=== PATIENT | male | born 1955 | race Caucasian/White ===

== ENCOUNTER → 2024-07-10 14:19 | Outpatient (REF) | payer OTHER, SELFPAY | LOC: RAD 14:19 | PROVIDERS: ATTENDING PHYSICIAN Physician Assistant Medical; FAMILY PHYSICIAN Family Medicine | DX: R31.9 Hematuria, unspecified (principal); R10.31 Right lower quadrant pain; R10.32 Left lower quadrant pain | CPT/HCPCS: 74176 ==

== ENCOUNTER → 2024-08-01 12:50 | Outpatient (REF) | payer OTHER, SELFPAY | LOC: HWRCS 12:50 | PROVIDERS: ATTENDING PHYSICIAN Physician Assistant Medical; FAMILY PHYSICIAN Family Medicine | DX: I35.9 Nonrheumatic aortic valve disorder, unspecified (principal) | CPT/HCPCS: 93306 ==

== ENCOUNTER 2024-10-08 19:52 | Inpatient (IN) | payer OTHER, SELFPAY ==
[2024-10-08] VITALS (19 sets, daily range): BP systolic 109–168; BP diastolic 70–111; BMI 29.4
--- NOTE | 2024-10-08 16:37 | ED.GENMED ---
History of Present Illness
General
Chief Complaint: Chest Pain
Source: patient and ambulance crew
Exam Limitations: none
Time Seen by Provider: 10/08/24 16:36
Nursing documentation reviewed up to this point in time: agreed with
History of Present Illness
History of Present Illness:
The patient is a 63-year-old man with a past medical history of hyperlipidemia as well as prostate cancer years ago, who reports fairly sudden onset of right upper back pain that started while he was lifting weights at the gym about half an hour
ago. Patient reports that initially he had associated chest pain but the chest pain is nearly gone. He describes the right upper back pain as an 8 out of 10. Patient reports he feels weak everywhere and is having difficulty sitting forward. He
appears flushed. He denies recent illnesses. He is a vague historian. He appears sleepy and denies drugs and alcohol when asked. Paramedics report that since arrival, he appears sleepy. Patient denies headache, sore throat, nausea vomiting and
visual changes.
Past History
Past History
ED Past Medical History: Cancer (Prostate cancer) and Hypercholesterolemia
ED Past Surgical History: Urological and Other
Social History
Tobacco: Non-smoker
Alcohol: Occasional
Drug: None
Personal: Single
Living: with family
Employment: Other
Family History
Family History: Other
Review of Systems
Review of Systems
Allergies reviewed?: Yes
Other source history: ambulance crew
All Other Systems: ROS reviewed and negative except as documented in HPI and ROS
Constitutional: Reports fatigue
EENT: Reports no symptoms
Respiratory: Reports no symptoms
Cardiac: Reports chest pain
ABD/GI: Reports no symptoms
: Reports no symptoms
Musculoskeletal: Reports muscle pain (Right upper back pain)
Skin: Reports no symptoms
Neurological: Reports no symptoms
Endocrine: Reports no symptoms
Hematologic/Lymphatic: Reports no symptoms
Psychiatric: Reports no symptoms
Phy Exam
Physical Exam
Physical Exam:
Physical Exam
General: Patient appears flushed, diaphoretic and sleepy. Awakens to voice and touch and falls back to sleep
Neck: supple. no meningeal signs. normal psoterior pharynx
Heart: s1/s2 regular rate and rhythm, no murmur. equal radial pulses. Strong pulses in bilateral feet
Lungs: no acute respiratory distress. clear bilaterally
Abdomen: normal bowel sounds. not tender. no CVAT
Neuro: alert nonfocal,
Skin: no rash
Psychiatric: well kept. Cooperative, barely interactive
Extremities: no edema.
Scores
Heart Score for Chest Pain Patients
STEMI patient?: Not applicable
Course
Orders/Labs/Results
Orders:
Orders
10/08/24 16:29
EKG [Electrocardiogram (*1)] Urgent
Reason for Study: Chest Pain
EKG- Treatment ONCE
Portable Chest Xray [CR Chest Portable - 1 View] Urgent
Comment:
Reason For Exam: chest pain
Reason Study Needs to be Portable: Unable to Transport
10/08/24 16:37
COVID-19 Antigen Urgent
Source: Nasal Swab
Complete Blood Count/With Diff Urgent
Comprehensive Metabolic Panel Urgent
PTT Urgent
Comment: ADDON
Prothrombin Time Urgent
Troponin I Urgent
Influenza A+B Rapid Molecular Urgent
MICHAEL Source: Nasal Swab
Specimen Description:
10/08/24 16:44
Urinalysis Reflex To Culture Urgent
Urine Drug Abuse Screen Urgent
10/08/24 16:55
CT Chest/abd/pelvis Angio W/wo Urgent
Comment:
Reason For Exam: CP, R upper back pain
10/08/24 16:57
CT Head W/o Iv Contrast Urgent
Comment:
Reason For Exam: acute lethargy
10/08/24 17:28
Electrocardiogram (*1) Urgent
Reason for Study: Chest Pain
EKG- Treatment ONCE
10/08/24 17:49
Add On- LAB Urgent
Tests Added?: ptt
Abnormal Lab Results
10/08/24
16:37
MCH 31.3 H pg
(27.0-31.0)
Absolute Monos (auto) 0.7 H 10^3/uL
(0.1-0.6)
Monocytes % 9.6 H %
(1.7-9.3)
Carbon Dioxide 18 L mmol/L
(22-30)
Glucose 114 H mg/dl
(70-99)
Troponin I 0.063 H* ng/ml
Albumin 5.1 H g/dl
(3.5-5.0)
10/08/24 16:37
10/08/24 16:37
Vital Signs
Initial and Last Documented VS:
Initial Vital Signs
Pulse Resp BP Pulse Ox
67 17 144/76 98
10/08/24 16:32 10/08/24 16:32 10/08/24 16:32 10/08/24 16:32
Last Documented Vital Signs
Temp Pulse Resp BP Pulse Ox
97.4 F 69 15 139/77 99
10/08/24 16:35 10/08/24 17:01 10/08/24 17:01 10/08/24 17:01 10/08/24 17:01
MDM/Problems Addressed
Differential Diagnosis Includes:
Acute coronary syndrome, aortic dissection, influenza, hyponatremia, acute dehydration
MDM/Problems Addressed:
Patient presents with acute right upper back pain, chest pain and lethargy
Chronic conditions affecting care: HTN
Acute Exacerbation and/or Progression of Chronic Illness:
Patient is acutely hypertensive, however, he does describe pretty severe right upper back pain which might account for this
Acute Exacerbation and/or Progression of Chronic Illness: HTN
*Radiology
Radiology exam reviewed: preliminary read by ED provider (CT scan checked by me. Aorta looks intact) and radiology read reviewed
*Pulse Oximetry
Patient hypoxic: no
*EKG
Interpreted by ED Provider?: Yes
Interpretation: abnormal
Comparison EKG: no comparison EKG present
Rate: normal
Rhythm: sinus
[place]: normal axis
Interval: normal interval
QRS Pattern: normal QRS
Ischemia: non-specific ST changes
*[employer] Team Member Interpretation
Rate: normal
Interpretation: normal
Rhythm: sinus
*Critical Care Note
Total Time (30-74mins, 75-104mins- exclusive of procedures): 45 minutes
comment:
45 minutes of critical care given to the patient including frequent reassessments of his pain, discussing the CAT scan with radiology as well as counseling the patient and family and discussing the case with cardiology
Data Reviewed
Review of Other/Old Records Reveals: Operative Reports (Radical prostatectomy report reviewed from Dr. Akins from 2013)
Source: patient, family (Sister who is at the bedside) and ambulance crew
Update Note
Update Note:
5:[address] report. First troponin is elevated. I had EKG repeated and reassessed patient. Patient reports pain is now a 3 out of 10 in chest at this time. Second EKG shows left axis deviation, sinus rhythm, ST segment changes. QRS
looks slightly wider. I Tigertexted both Dr. Valverde as well as Dr. Coy to evaluate patient's EKGs
STEMI alert called based on second EKG concerns. Patient already given aspirin via paramedics. Patient ordered Brilinta and heparin. Awaiting Construction And Maintenance Inspector.
ED Attending Note
-
Portions of this chart may have been created with voice recognition software.� Occasional wrong word or��sound alike� substitutions may have occurred due to the inherent limitations of voice recognition software.
Discharge Plan
Departure
Patient Disposition: Admit
Date of Disposition: 10/08/24
Time of Disposition: 17:53
Admit to: labor economics teacher
Admit to doctor: Dr. Jhonny Coy
Presentation/result/management discussed w/ accepting MD/DO: Dr Coy
Patient with high blood pressure during this ER visit?: Yes
Condition: Critical
Discharge Problem:
Acute coronary syndrome
Prescriptions:
No Action
lorazepam 1 MG tablet
1 mg PO BID
aspirin 81 MG tablet,delayed release (DR/EC)
81 mg PO DAILY
Gnc Vitamin Supplements 50+
1 PO DAILY
Prozac: 30 MG
30 mg PO DAILY
sulfamethoxazole-trimethoprim 1 TABLET tablet
1 tab PO Daily Qty: 14 0RF
tramadol 50 MG tablet
50 mg PO TIDPRN PRN (Reason: pain) Qty: 20 0RF
Referrals:
UNKNOWN - PT NOT,INTERVIEWE [Family Provider] -
Interventions
Interventions:
*Risk Screen - Suicide Last Done: 10/08/24 16:37
*General Assessment Last Done: 10/08/24 16:37
*Neglect/Abuse Screening Last Done: 10/08/24 16:37
*ED COVID-19 Vaccine History Last Done: 10/08/24 16:37
ED- Cardiac Assessment Last Done: 10/08/24 16:37
Discharge Date and Time
Print Language: DUTCH
[2024-10-08 16:55] LABS: % Basophils 0.7 % (0-2); % Eosinophils 3.9 % (0-6); % Immature Granulocytes 0.3 % (0-0.5); % Lymphocytes 29.1 % (20.5-51.1); % Monocytes 9.6 % (1.7-9.3); % Neutrophils 56.4 % (42.2-75.2); Absolute Basophils 0.1 10^3/uL (0-0.2); Absolute Eosinophils 0.3 10^3/uL (0-0.7); Absolute Lymphocytes 2.2 10^3/uL (1.2-3.4); Absolute Monocytes 0.7 10^3/uL (0.1-0.6); Absolute Neutrophils 4.3 10^3/uL (1.4-6.5); Hematocrit 43.1 % (39.0-52.0); Hemoglobin 15.3 g/dL (13.0-18.0); Mean Corp Hgb Conc. 35.5 g/dL (33.0-37.0); Mean Corpuscular Hgb 31.3 pg (27.0-31.0); Mean Corpuscular Volume 88.1 fL (80.0-94.0); Mean Platelet Volume 9.1 fL (7.4-10.4); Nucleated Red Blood Cells % 0 % (-); Platelet Count 302 10^3/uL (130-400); Red Blood Cell Count 4.89 10^6/uL (4.70-6.10); Red Cell Dist. Width 12.6 % (11.5-14.5); White Blood Cell Count 7.6 10^3/uL (4.8-10.8)
[2024-10-08 17:04] LABS: INR 0.92; PT 12.6 Sec (11.4-14.6)
[2024-10-08 17:15] LABS: COVID-19 Antigen Negative (Negative)
[2024-10-08 17:21] LABS: ALT (SGPT) 30 U/L (0-50); AST (SGOT) 35 U/L (17-59); Albumin 5.1 g/dl (3.5-5.0); Alkaline Phosphatase 105 U/L (38-126); Blood Urea Nitrogen 18 mg/dl (9-20); Calcium 9.8 mg/dl (8.4-10.2); Carbon Dioxide 18 mmol/L (22-30); Chloride 102 mmol/L (98-107); Glucose 114 mg/dl (70-99); Potassium 3.7 mmol/L (3.5-5.1); Sodium 136 mmol/L (135-145); Total Bilirubin 0.9 mg/dl (0.2-1.3); Total Protein 7.4 g/dl (6.3-8.2); eGFR > 60.00
[2024-10-08 17:40] LABS: Troponin I 0.063 ng/ml
[2024-10-08 18:46] LABS: ACT-LR - POC 178 Seconds (116-155)
[2024-10-08 18:55] LABS: ACT-LR - POC 237 Seconds (116-155)
[2024-10-08 19:04] LABS: ACT-LR - POC 271 Seconds (116-155)
[2024-10-08 19:41] LABS: ACT-LR - POC 260 Seconds (116-155)
--- NOTE | 2024-10-08 20:23 | ITS.CL.CATH ---
Production Operations Manager - Catheterization
Cardiac Catheterization
Procedure Report:
LEFT HEART CATH AND CORONARY INTERVENTION
Date of Procedure: October 08, 2024
Referring: [facility] Emergency Department
PROCEDURES:
1. Left heart catheterization with coronary and single-plane left ventriculography
2. Successful stenting of proximal to mid LAD with placement of a 3.5 x 38 mm Jesus stent that was implanted at nominal pressures then postdilated with a 3.5 mm noncompliant balloon to 24 tali in the mid LAD beyond the diagonal branch and 22 tali near
the distal edge of the stent. The proximal portion of the stent was postdilated with a 4.0 mm noncompliant balloon to 20 tali
3. IVUS post stenting
INDICATION: This is a 69-year-old gentleman with a past medical history notable for prostate cancer and hyperlipidemia. He presented to [facility] for evaluation of significant substernal chest discomfort that began while he was working
out at the gym this afternoon. He was pale and diaphoretic on arrival and symptoms gradually improved. His electrocardiogram did not demonstrate ST segment elevation. A CT scan of the chest was performed to exclude an aortic dissection. He he
continued to experience very mild low-grade chest and back discomfort and his troponin returned mildly elevated at 0.063 ng/mL for which he is now referred for coronary angiography in the setting of ongoing symptoms. The patient states that he
experienced similar chest discomfort about 2 weeks ago which lasted an hour or 2 and resolved spontaneously
ACCESS: Right radial artery, 6 Syrian sheath
HEMODYNAMICS (mmHg): Note: The LVEDP had to be rezeroed after the ventriculogram was performed and I am not 100% certain that the reported LVEDP is accurate. We proceeded with coronary stenting and elected not to recross his stenotic aortic valve
to measure and LVEDP
AO (s/d, m) : 155/105
LV (s/d) : 145/24
LVEDP : 48
CORONARY FINDINGS
Dominance: Right
LEFT MAIN: Short and unobstructed
LEFT ANTERIOR DESCENDING: The LAD arises normally from the left main running in the anterior interventricular groove. The mid LAD just beyond the first diagonal branch has an eccentric 85% stenosis. The remainder of the LAD has luminal
irregularities but no focal obstructive stenosis. The first diagonal branch has a 50% narrowing at its origin. The second diagonal branch is much smaller and appears angiographically normal
CIRCUMFLEX: The circumflex is a medium caliber nondominant vessel with a long 40-50% stenosis in its midportion. Circumflex bifurcates in its midportion to 2 obtuse marginal branches. OM1 is slightly larger than OM 2
RIGHT CORONARY: The right coronary artery is a dominant vessel with a 40% proximal stenosis and diffuse luminal irregularities throughout. The PDA has a 30% ostial narrowing. The posterolateral branch that supplies a sizable territory and has only
minor irregularities over its course
VENTRICULOGRAPHY: Left ventriculography was performed in an MAGDALENO projection. The digital single-plane left ventricular ejection fraction is estimated at 55% with no obvious regional wall motion abnormalities noted
ANGIOPLASTY PROCEDURE DETAIL: Upon review of the diagnostic catheterization films the decision was made to proceed with percutaneous revascularization of the high-grade mid LAD stenosis. Intravenous heparin and double bolus Integrilin were
administered. The origin of the left main was cannulated with a moderate degree of difficulty using an EBU 3.75 / 6 Syrian guiding catheter. A short BMW guidewire was advanced across the stenosis in the mid LAD and into the distal vessel. A
second wire was advanced across the proximal stenosis in the diagonal and into the distal vessel. Primary stenting was undertaken with placement of a 3.5 x 34 mm Jesus stent that was positioned from the proximal LAD just before the first septal
cover operator and before the first diagonal branch. The stent was implanted at nominal pressures. Intravascular ultrasound was then performed and the distal stent was postdilated with a 3.5 mm noncompliant balloon to 24 tali just beyond the diagonal
branch and 22 tali in the distal portion of the stent. The more proximal portion of the stent before the diagonal branch to the origin of the diagonal branch was postdilated with a 4 mm noncompliant balloon to 20 tali. JESSY-3 flow persisted into the
diagonal branch and no additional intervention was felt necessary at this time. A pinch was still present at the origin of the diagonal branch estimate around 50%.
INTRAVASCULAR ULTRASOUND: Intravascular ultrasound was performed following stent deployment to assess vessel and luminal diameter. Moderate degree of plaque was noted in the LAD beyond the stent. The distal portion of the stent appeared
well-approximated to the vessel wall. The stent was suboptimally implanted at the area of high-grade stenosis in the midportion of the stent and the stent was somewhat undersized proximally. The distal stent was postdilated with a 3.5 mm
noncompliant balloon between 22 and 24 tali while the proximal portion of the stent was postdilated with a 4.0 mm noncompliant balloon to 20 tali
RADIATION SUMMARY: Fluoro Time (min): 16.2, Dose (mGy): 771, DAP (Gy.cm2) : 52.9
CONCLUSIONS
1. Successful stenting of the LAD with a 3.5 x 34 mm Jesus stent that was implanted at nominal pressures then postdilated distally to high pressures with a 3.5 mm noncompliant balloon between 22 and 24 tali and with a 4.0 mm noncompliant balloon to
20 tali in the proximal to midportion of the stent
2. Preserved LV systolic function
RECOMMENDATIONS
1. Uninterrupted dual antiplatelet therapy for minimum of 1 year
2. High intensity statin
3. Aggressive blood pressure management for goal blood pressure of less than 130/80
4. Trend serial troponin and check fasting lipid profile as well as hemoglobin A1c
Copy to: Dr. Sean Hawthorne
--- NOTE | 2024-10-08 20:30 | PTCARENOTE ---
Pt refused 1945 dose of Lipitor. RN explained purpose of medication and relation to curent diagnosis. Pt verbalized understanding but declined. Plan of care ongoing.
--- NOTE | 2024-10-08 20:35 | PTCARENOTE ---
Pt loaded with 180 of Brilinta in ED before heart cath. Post cath pt was scheduled for an additional 90mg. Dr Coy made aware via tigertext and rec'd telephone order to hold 20:00 dose of PO Brilinta on 10/08. Medication hold for this dose and
telephone order in pt's chart. Plan of care ongoing.
[2024-10-08] MEDS: LOPRESSOR 25 MG PO (20:58)
[2024-10-08] MEDS: ZESTRIL 2.5 MG PO (20:58)
[2024-10-08] MEDS: LIPITOR PO ×2 (20:59→21:02)
--- NOTE | 2024-10-08 21:25 | PTCARENOTE ---
Rec'd pt from biological lab technician as STEMI. Pt with R radial site CDI and agrees to R upper extremity restriction, external pressure device in place. Pt reported mild back discomfort and BREONNA Pearce notified for pain control. Pt in SR on TELE monitor with
PVC's, VSS, and AAO*3. Pt oriented to IVU and denies any questions or concerns. Pt resting with call myers in reach and plan of care ongoing. See MAR and flowchart for full pt care and assessment.
[2024-10-08] MEDS: TYLENOL 1000 MG PO (23:02)
[2024-10-08] MEDS: BRILINTA PO (23:25)
[2024-10-09] VITALS (10 sets, daily range): BP systolic 99–132; BP diastolic 54–80; BMI 29.4
--- NOTE | 2024-10-09 00:58 | PTCARENOTE ---
20:00 Trop resulted at 15.[address] PA abebe aware of upward trending troponin. Next troponin draw at 0200. Plan of care ongoing.
[2024-10-09 02:43] LABS: Hematocrit 38.1 % (39.0-52.0); Hemoglobin 13.2 g/dL (13.0-18.0); Mean Corp Hgb Conc. 34.6 g/dL (33.0-37.0); Mean Corpuscular Hgb 30.7 pg (27.0-31.0); Mean Corpuscular Volume 88.6 fL (80.0-94.0); Mean Platelet Volume 8.9 fL (7.4-10.4); Platelet Count 248 10^3/uL (130-400); Red Cell Dist. Width 12.7 % (11.5-14.5); White Blood Cell Count 12.5 10^3/uL (4.8-10.8)
[2024-10-09 02:56] LABS: Blood Urea Nitrogen 19 mg/dl (9-20); Calcium 8.8 mg/dl (8.4-10.2); Carbon Dioxide 23 mmol/L (22-30); Chloride 103 mmol/L (98-107); Estimated Creatinine Clearance 122 ml/min; Glucose 148 mg/dl (70-99); HDL Cholesterol 51 mg/dl; LDL Cholesterol, Calculated 121 mg/dl; Potassium 4.4 mmol/L (3.5-5.1); Sodium 135 mmol/L (135-145); Total Cholesterol 201 mg/dl (50-199); Triglyceride 146 mg/dl (10-149); Very Low Density Lipoprotein 29 mg/dl (0-30); eGFR > 60.00
[2024-10-09] MEDS: TYLENOL 650 MG PO (04:29)
[2024-10-09] MEDS: DILAUDID 0.25 MG IV (06:47)
[2024-10-09 07:12] LABS: ACT-LR - POC > 397 Seconds (116-155)
--- NOTE | 2024-10-09 07:32 | W.PN.CARDCBS ---
Addendum entered and electronically signed by Casey Boogie DO 10/09/24 12:05:
I saw and examined the patient.
The Studio Receptionist's note was reviewed and I agree with the note.
Comment:
Plan:
Cont to trend troponin until it peaks
Cont DAPT
Reviewed cath with pt
With jailed Diag could expect some angina. Add NTP 08/24 '' for now. He was counseled on not using Cialis while on nitrates. He uses Cialis for prostate/bladder issues he states.
Not clear that he would go home on nitrates and with his need for Cialis will try to avoid adding oral nitrates.
Echo pending.
Cont beta jose for NSVT
Discussed with nursing.
Original Note:
Today's Communication / Plan
-
Continue to trend troponin
Continue dual antiplatelet therapy with aspirin and Brilinta
New to Lopressor, lisinopril, atorvastatin
Cardiac rehab consultation
Impression / Plan
-
PCP: Dr. Wooten
Rn Palliative: Dr. Hawthorne
Impression:
Presented 10/08/2024 with substernal chest pain radiating into back
NSTEMI
CAD
s/p 3.5 x 38 mm Mio stent to mid LAD, jailed first diagonal 10/08/2024
Hyperlipidemia
Prostate CA s/p robotic assisted prostatectomy
Echo 10/09/2024: pending
Echo 07/2024: Normal biventricular size and function, LVEF 55 to 60%, mild to moderate mitral regurgitation, mild aortic stenosis peak/mean 29/16 mmHg, mild aortic regurgitation
Cardiac catheterization 10/08/2024: LM:Short and unobstructed. LAD: Mid 85% stenosis beyond first diagonal s/p 3.5 x 38 mm Jesus stent resulting in jailed diagonal. Circumflex: 40 to 50% mid. RCA: Proximal 40%. RPDA ostial 30%. VENTRICULOGRAPHY:
55% with no obvious regional wall motion abnormalities noted.
Plan:
-Presented 10/08/2024 with substernal chest pain radiating into the back. Found to have abnormal EKG with positive troponin/NSTEMI
-NSTEMI, initial troponin 0.063->15.6-> 29.5. Trend to peak
-CAD s/p 3.5 x 38 mm Jesus stent to mid LAD, jailed first diagonal (10/08/2024). Also 40 to 50% residual circumflex and 40% residual RCA stenosis for which medical management will be recommended
-Still with occasional substernal chest discomfort. Discussed initiating nitrate however patient uses Tadalafil twice a week for urinary issues post prostatectomy with last dosing 10/06/2024 in the afternoon. Will hold on nitrates to allow for
72-hour washout period. If additional chest pain can utilize morphine as needed or cautiously use nitro with close monitoring of BP.
-Dual antiplatelet therapy for 1 year with aspirin and Brilinta
-New to Lopressor, lisinopril and statin
-Prestatin lipids 10/09/2024 TC 201, HDL 51, LDL 121, triglycerides 146. Now on high intensity atorvastatin at 80 mg
-Hemoglobin A1c pending
-Check echocardiogram
-Patient was noted to have brief 3-5 beat runs of NSVT which seems to be improving with initiation of beta-jose and PCI. Continue to monitor on telemetry. Keep K greater than 4, mag greater than 2
-Cardiac rehab consultation
Progress Note - Rn Palliative
Subjective
Date of Service: October 09, 2024
Patient seen and examined. Patient lying in bed. Patient reports overnight had occasional intermittent substernal chest discomfort radiating to back. Currently chest pain-free
Objective
Labs:
10/09/24 02:29
10/09/24 02:29
Labs
Hgb 13.2 g/dL (13.0-18.0) 10/09/24 02:29
Hct 38.1 % (39.0-52.0) L 10/09/24 02:29
Plt Count 248 10^3/uL (130-400) 10/09/24 02:29
PT 12.6 Sec (11.4-14.6) 10/08/24 16:37
INR 0.92 10/08/24 16:37
APTT 28.0 Sec (23.4-35.0) 10/08/24 16:37
Sodium 135 mmol/L (135-145) 10/09/24 02:29
Potassium 4.4 mmol/L (3.5-5.1) 10/09/24 02:29
BUN 19 mg/dl (9-20) 10/09/24 02:29
Creatinine 0.6 mg/dL (0.7-1.3) L 10/09/24 02:29
Glucose 148 mg/dl (70-99) H 10/09/24 02:29
Troponins
10/08/24 10/08/24 10/09/24
16:37 20:52 02:29
Troponin I 0.063 H* 15.600 H* D 29.500 H* D
Vital Signs and I&O:
Vital Signs
Temp Pulse Resp BP Pulse Ox
99.1 F 75 16 132/73 96
10/09/24 02:12 10/09/24 06:15 10/09/24 02:12 10/09/24 02:12 10/09/24 02:12
Vital Signs
Temp Pulse Resp BP Pulse Ox
99.1 F 75 16 132/73 96
10/09/24 02:12 10/09/24 06:15 10/09/24 02:12 10/09/24 02:12 10/09/24 02:12
Intake & Output
10/07/24 10/08/24 10/09/24 10/10/24
06:59 06:59 06:59 06:59
Intake Total 480 / 480
Output Total 600 / 600
Balance -120 / -120
Physical Exam
Physical Exam
GEN: No distress, awake, Ox3, lying in bed
HEENT: supple, anicteric, mmm
LUNGS: CTA, no wheezes/rales
CV: Reg, S1/S2, 1/6 syst murmur, no rub or gallop
ABD: soft, BS+, NT/ND
EXT: No edema, clubbing or cyanosis; right radial catheterization site clean dry intact with good palpable radial and ulnar pulses. No evidence of hematoma or ecchymosis
NEURO: Gross non-focal
SKIN: No rash, warm, dry, pink
[2024-10-09] MEDS: PROTONIX 40 MG PO (08:51)
[2024-10-09] MEDS: ZESTRIL 2.5 MG PO (08:51)
[2024-10-09] MEDS: LOPRESSOR 25 MG PO ×2 (08:51→20:04)
[2024-10-09] MEDS: LOW STRENGTH ASPIRIN 81 MG PO (08:52)
[2024-10-09] MEDS: BRILINTA 90 MG PO ×2 (08:52→20:04)
[2024-10-09 09:06] LABS: Glycohemoglobin (HgbA1c) 5.4 % (4.0-5.6)
--- NOTE | 2024-10-09 09:44 | PTCARENOTE ---
received patient this am,patient c/o discomfort in chest, Kyung RAVI aware and in room, Dr. Boogie also aware. troponin drawn, results 21.1, trending down. EKG obtained as ordered. monitor shows NSR, VSS. right radial dsg. D/I,distal pulse palpable.
patient ordering breakfast.
[2024-10-09] MEDS: NITRO-BID 0.5 INCH TOPICAL (13:15)
--- NOTE | 2024-10-09 14:09 | PTCARENOTE ---
patient continues to c/o chest discomfort, Kyung RAVI aware, NTP ordered and given. patient continues to c/o chest discomfort radiating to back, Kyung RAVI on floor assessing patient, Toradol given as ordered.
[2024-10-09] MEDS: TORADOL 15 MG IV (14:15)
[2024-10-09] MEDS: FLUSH (NSS) 1 FLUSH IV (14:18)
--- NOTE | 2024-10-09 15:09 | PTCARENOTE ---
patient in bed dozing off and on, patient stated Toradol is helping with his pain.
[2024-10-09] MEDS: NITRO-BID 1 INCH TOPICAL (17:14)
[2024-10-09] MEDS: LIPITOR 80 MG PO (17:14)
[2024-10-09] MEDS: LOVENOX 40 MG SC (17:16)
--- NOTE | 2024-10-09 18:01 | CM ---
spoke with pt in room, he is prev indep. lives withhis mom in a 1 story home with 3 steps to enter. he denies any dme's or dc plannin gneeds. plan is for dc to home when medically stable.
--- NOTE | 2024-10-09 18:02 | CM ---
[facility] his copay is $112.23/month, he is agreeable, it is in stock.
--- NOTE | 2024-10-09 23:55 | PTCARENOTE ---
Pt refused nitro past at 00:00. Pt denies chest pain or discomfort. Nitro patch on R arm removed. BP stable.
[2024-10-10] VITALS (11 sets, daily range): BP systolic 105–131; BP diastolic 57–68; BMI 29.1
[2024-10-10] MEDS: NITRO-BID TOPICAL ×4 (00:02→17:30)
[2024-10-10] MEDS: BRILINTA 90 MG PO ×2 (08:23→19:36)
[2024-10-10] MEDS: NITRO-BID 1 INCH TOPICAL (08:23)
[2024-10-10] MEDS: LOW STRENGTH ASPIRIN 81 MG PO (08:23)
[2024-10-10] MEDS: PROTONIX 40 MG PO (08:23)
[2024-10-10] MEDS: ZESTRIL 2.5 MG PO ×2 (08:24)
--- NOTE | 2024-10-10 08:38 | W.PN.CARDCBS ---
Addendum entered and electronically signed by Sean Hawthorne MD 10/10/24 12:01:
I saw and examined the patient.
The Needle Loom Setter's note was reviewed and I agree with the note.
Comment:, 69-year-old man past medical history of mild aortic stenosis who presented with chest discomfort came on while he was exercising at the gym and was found to have NSTEMI for which drug-eluting stent was placed in the mid LAD
Patient has been reporting intermittent episodes of chest throughout the hospitalization but was asymptomatic at time of evaluation and had been walking the halls earlier today without chest discomfort
Troponin peaked at 21 and is now downtrending
Echo here showing overall preserved left ventricular systolic function with EF 50 to 55% w/ LAD territory wall motion abnormality
Continue medical management with aspirin/Brilinta/high intensity statin/metoprolol
Telemetry reviewed, episode of symptomatic nonsustained VT this morning
Plan to replete K/Mg
Uptitrate metoprolol
Monitor on telemetry overnight for further ectopy
Addendum entered and electronically signed by Kyung Worthy PA-C 10/10/24 10:05:
Patient had 8-second run of ventricular tachycardia for which he was symptomatic. Potassium 3.8, magnesium 2.0. Will replete both. Will uptitrate Toprol to 25 mg twice a day. Continue to monitor on telemetry for another 24 hours.
Original Note:
Today's Communication / Plan
-
Transition Lopressor to Toprol
Discontinue Nitropaste
Continue DAPT
Check BMP, mag and troponin
Will have patient ambulate around the unit and if he remains chest pain-free could consider discharge later this afternoon. If patient has reoccurrence of chest pain we will keep overnight.
Impression / Plan
-
PCP: Dr. Wooten
Digital Developer: Dr. Hawthorne
Impression:
Presented 10/08/2024 with substernal chest pain radiating into back
NSTEMI, peak troponin 29.5
CAD
s/p 3.5 x 38 mm Jesus stent to mid LAD, jailed first diagonal 10/08/2024
Hyperlipidemia
Prostate CA s/p robotic assisted prostatectomy
Echo 10/09/2024: EF 50 to 55%. Moderate concentric LVH. Apical anterior, apical inferior, apical septum and apex are severely hypokinetic. Mild MR. Mild with peak/mean gradient 26/17 mmHg with MICHAELA 1.2 cm�. Trace AI. Mild TR. PAP 36 mmHg
Echo 07/2024: Normal biventricular size and function, LVEF 55 to 60%, mild to moderate mitral regurgitation, mild aortic stenosis peak/mean 29/16 mmHg, mild aortic regurgitation
Cardiac catheterization 10/08/2024: LM:Short and unobstructed. LAD: Mid 85% stenosis beyond first diagonal s/p 3.5 x 38 mm Jesus stent resulting in jailed diagonal. Circumflex: 40 to 50% mid. RCA: Proximal 40%. RPDA ostial 30%. VENTRICULOGRAPHY:
55% with no obvious regional wall motion abnormalities noted.
Plan:
-Presented 10/08/2024 with substernal chest pain radiating into the back. Found to have abnormal EKG with positive troponin/NSTEMI
-NSTEMI, peak troponin 29.5
-CAD s/p 3.5 x 38 mm [place] stent to mid LAD, jailed first diagonal (10/08/2024). Also 40 to 50% residual circumflex and 40% residual RCA stenosis for which medical management will be recommended
-Overall reports feeling well. Still some occasional substernal chest pressure that comes without rhyme or reason and not necessarily related to activity or exertion. Troponins trended down despite symptoms. EKG stable without acute ischemic
changes. Patient's symptoms over last 24 hours most improved after given Toradol. No significant improvement with Nitropaste. Will discontinue Nitropaste.
-Would avoid nitrates if possible as patient does take Cialis twice a day for prostate/bladder issues.
-Reviewed echocardiogram with patient which showed EF of 50 to 55% and hypokinesis of apical anterior, apical inferior, apical septal region. Stable
-Dual antiplatelet therapy for 1 year with aspirin and Brilinta. Brilinta $112.23 a month. Will provide free 30-day co-pay card. Patient is agreeable to parker. If becomes cost prohibitive after 3 months then could consider transitioning to
Plavix.
-Transition Lopressor to Toprol 25 mg daily. Continue lisinopril and atorvastatin. These medications are new
-Prestatin lipids 10/09/2024 TC 201, HDL 51, LDL 121, triglycerides 146. Now on high intensity atorvastatin at 80 mg
-Hemoglobin A1c 5.4%
-Patient was noted to have brief 3-5 beat runs of NSVT which seems to be improving with initiation of beta-jose and PCI. Continue to monitor on telemetry. Keep K greater than 4, mag greater than 2
-Patient seen and evaluated by cardiac rehab.
Will have patient ambulate around the unit and if he remains chest pain-free could consider discharge later this afternoon. If patient has reoccurrence of chest pain we will keep overnight.
Progress Note - Digital Developer
Subjective
Date of Service: October 10, 2024
Patient seen and examined. Patient sitting on edge of bed eating his breakfast. Reports he slept great last night without any reoccurrence of chest discomfort or pressure. However this morning upon awakening and sitting up he noted him on mild
discomfort that was brief in nature. Currently chest pain-free
Objective
Labs:
10/09/24 02:29
10/09/24 02:29
Labs
Hgb 13.2 g/dL (13.0-18.0) 10/09/24 02:29
Hct 38.1 % (39.0-52.0) L 10/09/24 02:29
Plt Count 248 10^3/uL (130-400) 10/09/24 02:29
PT 12.6 Sec (11.4-14.6) 10/08/24 16:37
INR 0.92 10/08/24 16:37
APTT 28.0 Sec (23.4-35.0) 10/08/24 16:37
Sodium 135 mmol/L (135-145) 10/09/24 02:29
Potassium 4.4 mmol/L (3.5-5.1) 10/09/24 02:29
BUN 19 mg/dl (9-20) 10/09/24 02:29
Creatinine 0.6 mg/dL (0.7-1.3) L 10/09/24 02:29
Glucose 148 mg/dl (70-99) H 10/09/24 02:29
Troponins
10/08/24 10/08/24 10/09/24
16:37 20:52 02:
Troponin I 0.063 H* 15.600 H* D 29.500 H* D
10/09/24
08:44
Troponin I 21.100 H* D
Vital Signs and I&O:
Vital Signs
Temp Pulse Resp BP Pulse Ox
98.9 F 85 18 105/63 97
10/10/24 07:47 10/10/24 08:24 10/10/24 07:47 10/10/24 08:24 10/10/24 07:47
Vital Signs
Temp Pulse Resp BP Pulse Ox
98.9 F 85 18 105/63 97
10/10/24 07:47 10/10/24 08:24 10/10/24 07:47 10/10/24 08:24 10/10/24 07:47
Intake & Output
10/08/24 10/09/24 10/10/24 10/11/24
06:59 06:59 06:59 06:59
Intake Total 480 / 480 480 / 480
Output Total 600 / 600
Balance -120 / -120 480 / 480
Physical Exam
Physical Exam
GEN: No distress, awake, Ox3, sitting up on edge of bed eating breakfast
HEENT: supple, anicteric, mmm
LUNGS: CTA, no wheezes/rales
CV: Reg, S1/S2, 1/6 syst murmur, no rub or gallop
ABD: soft, BS+, NT/ND
EXT: No edema, clubbing or cyanosis; right radial catheterization site clean dry intact with good palpable radial and ulnar pulses. No evidence of hematoma or ecchymosis
NEURO: Gross non-focal
SKIN: No rash, warm, dry, pink
[2024-10-10] MEDS: LOPRESSOR PO (09:06)
[2024-10-10] MEDS: TOPROL XL 25 MG PO ×2 (09:10→19:36)
--- NOTE | 2024-10-10 09:33 | PTCARENOTE ---
received patient this am sitting in bed, patient c/o 'slight discomfort in chest', NTP applied. Kyung RAVI in room and aware. monitor shows NSR, VSS. am labs drawn and sent to lab.
--- NOTE | 2024-10-10 09:56 | PTCARENOTE ---
"patient up ambulating in hallway, had 13 plus beats of Vtach, at the time the patient was ambulating in hallway and grabbed the door frame and said he felt palpitations. immediately was escorted back to bed BP 124/65, HR 103. Kyung RAVI aware and "Daniel, will continue to monitor."
[2024-10-10 09:58] LABS: Blood Urea Nitrogen 15 mg/dl (9-20); Calcium 8.6 mg/dl (8.4-10.2); Carbon Dioxide 24 mmol/L (22-30); Chloride 100 mmol/L (98-107); Estimated Creatinine Clearance 104 ml/min; Glucose 132 mg/dl (70-99); Potassium 3.8 mmol/L (3.5-5.1); Sodium 132 mmol/L (135-145); eGFR > 60.00
[2024-10-10] MEDS: KCL 20 MEQ PO (10:15)
[2024-10-10] MEDS: MAGNESIUM OXIDE 500 MG PO (10:15)
--- NOTE | 2024-10-10 10:19 | PTCARENOTE ---
k 3.8, mag 2.0, Dr. Villaseñor aware, supplemented as ordered.
--- NOTE | 2024-10-10 11:52 | CM ---
Chart reviewed. Patient is independent of ADLS, lives with his mom in a [address], 3 [address], 0 DME. Plan is for the patient to return home. CM to follow
[2024-10-10] MEDS: LIPITOR 80 MG PO (17:25)
[2024-10-10] MEDS: LOVENOX 40 MG SC (17:25)
--- NOTE | 2024-10-10 20:04 | PTCARENOTE ---
Received patient at change of shift. Patient A&Ox3. Right radial site clean, dry, and intact. No ecchymosis, swelling, and soft to touch. BP 131/68, NSR 70s, 96% on room air. Patient has been ambulating around the floor. Discussed plan of care for
evening. Patient verbalized understanding. Call myers within reach.
--- NOTE | 2024-10-11 02:41 | DOWNTIME ---
There was a [employer] Client City Maintenance Manager Downtime on 10/11/2024 from 0100 to 10/11/2023 at 0235 . Downtime documentation of patient's care, including medication administrations, has been reconciled in the electronic record per guidelines. Refer to the
patient's paper chart under the miscellaneous tab to see printed paper medication records and downtime forms.
[2024-10-11 04:40] VITALS: BP 124/74
[2024-10-11 05:25] LABS: Blood Urea Nitrogen 18 mg/dl (9-20); Carbon Dioxide 25 mmol/L (22-30); Chloride 104 mmol/L (98-107); Estimated Creatinine Clearance 104 ml/min; Glucose 95 mg/dl (70-99); Magnesium 2.3 mg/dl (1.6-2.3); Potassium 4.4 mmol/L (3.5-5.1); Sodium 137 mmol/L (135-145); eGFR > 60.00
[2024-10-11] MEDS: BRILINTA 90 MG PO (08:02)
[2024-10-11] MEDS: LOW STRENGTH ASPIRIN 81 MG PO (08:02)
[2024-10-11 08:03] VITALS: BP 114/71
[2024-10-11] MEDS: ZESTRIL 2.5 MG PO (08:03)
[2024-10-11] MEDS: PROTONIX 40 MG PO (08:03)
[2024-10-11] MEDS: TOPROL XL 25 MG PO (08:04)
--- NOTE | 2024-10-11 10:57 | W.PN.CARDCBS ---
Addendum entered and electronically signed by Luba Winn PA-C 10/11/24 13:46:
[id number]
Original Note:
Today's Communication / Plan
-
Plan:
-Stable for discharge on dual antiplatelet therapy
-Appointment scheduled with cardiac rehab
-Continue high intensity statin
-Runs of NSVT within first [address] None overnight
-He has been ambulating in the halls
-Followup with Dr. Hawthorne
-Rehab appointment has been scheduled
Impression / Plan
-
PCP: Dr. Wooten
Ranger Aide: Dr. Hawthorne
Impression:
Presented 10/08/2024 with substernal chest pain radiating into back
NSTEMI, peak troponin 29.5
CAD
s/p 3.5 x 38 mm Jesus stent to mid LAD, jailed first diagonal 10/08/2024
Hyperlipidemia
Prostate CA s/p robotic assisted prostatectomy
Echo 10/09/2024: EF 50 to 55%. Moderate concentric LVH. Apical anterior, apical inferior, apical septum and apex are severely hypokinetic. Mild MR. Mild with peak/mean gradient 26/17 mmHg with MICHAELA 1.2 cm�. Trace AI. Mild TR. PAP 36 mmHg
Echo 07/2024: Normal biventricular size and function, LVEF 55 to 60%, mild to moderate mitral regurgitation, mild aortic stenosis peak/mean 29/16 mmHg, mild aortic regurgitation
Cardiac catheterization 10/08/2024: LM:Short and unobstructed. LAD: Mid 85% stenosis beyond first diagonal s/p 3.5 x 38 mm [place] stent resulting in jailed diagonal. Circumflex: 40 to 50% mid. RCA: Proximal 40%. RPDA ostial 30%. VENTRICULOGRAPHY:
55% with no obvious regional wall motion abnormalities noted.
Plan:
-Stable for discharge on dual antiplatelet therapy
-Appointment scheduled with cardiac rehab
-Continue high intensity statin
-Runs of NSVT within first [address] None overnight
-He has been ambulating in the halls
-Followup with Dr. Hawthorne
-Rehab appointment has been scheduled
Progress Note - Ranger Aide
Subjective
Date of Service: October 11, 2024
He states he had an episode of dizziness when he was ambulating yesterday
TELEMETRY: NSVT x 14 beats on telemetry monitoring on 10/10/24 @ 9:49 am. NO herminia noted.
Objective
Labs:
10/09/24 02:29
10/11/24 04:47
Labs
Hgb 13.2 g/dL (13.0-18.0) 10/09/24 02:29
Hct 38.1 % (39.0-52.0) L 10/09/24 02:29
Plt Count 248 10^3/uL (130-400) 10/09/24 02:29
PT 12.6 Sec (11.4-14.6) 10/08/24 16:37
INR 0.92 10/08/24 16:37
APTT 28.0 Sec (23.4-35.0) 10/08/24 16:37
Sodium 137 mmol/L (135-145) 10/11/24 04:47
Potassium 4.4 mmol/L (3.5-5.1) 10/11/24 04:47
BUN 18 mg/dl (9-20) 10/11/24 04:47
Creatinine 0.7 mg/dL (0.7-1.3) 10/11/24 04:47
Glucose 95 mg/dl (70-99) 10/11/24 04:47
Troponins
10/08/24 10/08/24 10/09/24
16:37 20:52 02:29
Troponin I 0.063 H* 15.600 H* D 29.500 H* D
10/09/24 10/10/24
08:44 09:25
Troponin I 21.100 H* D 11.800 H*
Vital Signs and I&O:
Vital Signs
Temp Pulse Resp BP Pulse Ox
98.1 F 76 20 114/71 96
10/11/24 08:05 10/11/24 10:00 10/11/24 08:05 10/11/24 08:03 10/11/24 08:05
Vital Signs
Temp Pulse Resp BP Pulse Ox
98.1 F 76 20 114/71 96
10/11/24 08:05 10/11/24 10:00 10/11/24 08:05 10/11/24 08:03 10/11/24 08:05
Intake & Output
10/08/24 10/09/24 10/10/24 10/11/24
23:59 23:59 23:59 23:59
Intake Total 480 / 480 480 / 480 400 / 400
Output Total 600 / 600
Balance -120 / -120 480 / 480 400 / 400
Physical Exam
Physical Exam
GEN: AAO x 3. Lying in bed in no acute distress
HEENT: NC/AT, sclera are anicteric
LUNGS: Clear in the anterolateral lung
CV: Regular rate and rhythm. Normal S1/S2.
ABD : Soft, NT, ND, No HSM. Bowel sounds are present.
EXT: No CCE
NEURO: No focal neurologic deficits
[2024-10-11 11:46] VITALS: BP 121/92
--- NOTE | 2024-10-11 13:37 | W.DS.TRANS ---
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
-
Discharge Instructions:
Discharge Diagnosis/Procedures non-ST elevation myocardial infarction, status-
post 3.5 mm [place] drug eluting stent to the mid
LAD (left anterior descending artery) and jailed
first diagonal branch by cardiac
catheterization 10/08/24
Diet Low Fat
Activity Other activity
Driving Restrictions As prior to admission
Bathing Restrictions OK to Shower
Other Services Cardiac Rehab
Instructions:
Stand-Alone Forms: DC Instructions- Cath/EP Lab
Changes to Home Medications: Yes
Discharge Medications:
DC Medications w/original date entered in [employer]
fluoxetine 20 mg capsule 20 mg PO QWEEK 04/26/14
doxycycline hyclate 100 mg capsule 100 mg PO .2XWEEKLY 10/08/24
tadalafil 5 mg tablet 5 mg PO .2XWEEKLY 10/08/24
aspirin 81 mg chewable tablet 81 mg PO DAILY Heart disease/condition #30 tabs 10/11/24
atorvastatin 80 mg tablet 80 mg PO QPM High cholesterol #30 tabs 10/11/24
lisinopril 2.5 mg tablet 2.5 mg PO DAILY Heart disease/condition #30 tabs 10/11/24
metoprolol succinate 25 mg tablet,extended release 24 hr 25 mg PO BID Heart disease/condition #60 tabs 10/11/24
pantoprazole 40 mg tablet,delayed release 40 mg PO DAILY Gastrointestinal issue #30 tabs 10/11/24
ticagrelor 90 mg tablet (Brilinta) 90 mg PO BID Heart disease/condition #60 tabs 10/11/24
Home Medication Changes
Crestor changed to Lipitor
Aspirin changed to once a day
New to Brilinta, Protonix, Toprol XL, lisinopril
Pending Results: No
--- NOTE | 2024-10-11 14:17 | PTCARENOTE ---
IV and tele removed. Discharge instructions reviewed w/ pt and sister. Verbalizes understanding. Belongings collected and sent home w/ pt. Escorted pt via WC and staff assist. Discharged to home.
== END 2024-10-11 15:10 | disposition home or self-care (01) | DRG 322 ==
LOC: IVU 19:52
PROVIDERS: Physician Assistant Medical; ADMITTING PHYSICIAN Internal Medicine Interventional Cardiology; EMERGENCY PHYSICIAN Emergency Medicine
PROC: B2151ZZ Fluoroscopy of Left Heart using Low Osmolar Contrast (ICD-10-PCS; 2024-10-08)
PROC: 027034Z Dilation of Coronary Artery, One Artery with Drug-eluting Intraluminal Device, Percutaneous Approach (ICD-10-PCS; 2024-10-08)
PROC: B240ZZ3 Ultrasonography of Single Coronary Artery, Intravascular (ICD-10-PCS; 2024-10-08)
PROC: B2111ZZ Fluoroscopy of Multiple Coronary Arteries using Low Osmolar Contrast (ICD-10-PCS; 2024-10-08)
PROC: 4A023N7 Measurement of Cardiac Sampling and Pressure, Left Heart, Percutaneous Approach (ICD-10-PCS; 2024-10-08)
DX: I21.4 Non-ST elevation (NSTEMI) myocardial infarction (principal); I47.20 Ventricular tachycardia, unspecified; E78.00 Pure hypercholesterolemia, unspecified; M54.6 Pain in thoracic spine; I25.10 Atherosclerotic heart disease of native coronary artery without angina pectoris; R53.1 Weakness; I11.9 Hypertensive heart disease without heart failure; Z79.82 Long term (current) use of aspirin; Z88.5 Allergy status to narcotic agent; Z85.46 Personal history of malignant neoplasm of prostate; Z11.52 Encounter for screening for COVID-19
CPT/HCPCS: 93308; 70450; 71275; 74174; 80048; 80053; 80061; 83036; 83735; 84484; 85025; 85027; 85347; 85610; 85730; 87502; 87811; 92978; 93005; 93321; 93325; 93458; 99291; C1725; C1753; C1769; C1874; C1894; C9600; J1327; Q9967

== ENCOUNTER 2024-11-10 09:00 | Inpatient (IN) | payer OTHER, SELFPAY ==
[2024-11-10] VITALS (13 sets, daily range): BP systolic 63–137; BP diastolic 41–81; BMI 30.4; BMI 30.1
[2024-11-10 03:27] LABS: % Basophils 0.3 % (0-2); % Eosinophils 0.8 % (0-6); % Immature Granulocytes 0.3 % (0-0.5); % Lymphocytes 6.8 % (20.5-51.1); % Monocytes 4.4 % (1.7-9.3); % Neutrophils 87.4 % (42.2-75.2); Absolute Eosinophils 0.1 10^3/uL (0-0.7); Absolute Lymphocytes 0.5 10^3/uL (1.2-3.4); Absolute Monocytes 0.3 10^3/uL (0.1-0.6); Absolute Neutrophils 6.3 10^3/uL (1.4-6.5); Hemoglobin 13.6 g/dL (13.0-18.0); Mean Corp Hgb Conc. 35.8 g/dL (33.0-37.0); Mean Corpuscular Hgb 30.9 pg (27.0-31.0); Mean Corpuscular Volume 86.4 fL (80.0-94.0); Mean Platelet Volume 9.3 fL (7.4-10.4); Nucleated Red Blood Cells % 0 % (-); Platelet Count 217 10^3/uL (130-400); Red Cell Dist. Width 12.3 % (11.5-14.5); White Blood Cell Count 7.2 10^3/uL (4.8-10.8)
--- NOTE | 2024-11-10 03:46 | ED.GENMED ---
History of Present Illness
General
Chief Complaint: Abdominal Pain
Source: patient
Exam Limitations: none
Time Seen by Provider: 11/10/24 02:45
Nursing documentation reviewed up to this point in time: agreed with
History of Present Illness
History of Present Illness:
Pleasant 69-year-old male presents via EMS from home with epigastric pain radiating to his lower back. Patient concerned because he had a ' maker 'ME 4 weeks ago. He denies any chest pain or shortness of breath. States that the symptoms are
not similar to his previous ME. Denies fever, chills, nausea or vomiting. Does have a history of high blood pressure and hyperlipidemia.
Past History
Past History
ED Past Medical History: Cancer (Prostate cancer) and Hypercholesterolemia
ED Past Surgical History: Urological and Other
Social History
Tobacco: Non-smoker
Alcohol: Occasional
Drug: None
Personal: Single
Living: with family
Employment: Other
Family History
Family History: Other
Review of Systems
Review of Systems
Allergies reviewed?: Yes
All Other Systems: ROS reviewed and negative except as documented in HPI and ROS
Constitutional: Reports no symptoms
EENT: Reports no symptoms
Respiratory: Reports no symptoms
Cardiac: Reports no symptoms
ABD/GI: Reports abdominal pain
: Reports no symptoms
Musculoskeletal: Reports no symptoms
Skin: Reports no symptoms
Neurological: Reports no symptoms
Endocrine: Reports no symptoms
Hematologic/Lymphatic: Reports no symptoms
Psychiatric: Reports anxiety
Phy Exam
General Physical Exam
General Presentation: well appearing and no apparent distress
General Skin: warm and dry
General Habitus: normal
General Mental: alert
General Hydration: appears well hydrated
ENT Exam
ENT Exam: EOMI, pharynx normal, neck supple and normocephalic
Eye Exam
Eye Exam: PERRL, cornea clear and conjunctiva normal
Cardiovascular Exam
Cardiovascular Exam: regular rate/rhythm, no edema, no murmur and normal peripheral pulses
Pulmonary Exam
Pulmonary Exam: lungs clear, no respiratory distress, no rales, no crackles, no rhonchi, no stridor, no wheezing and no cough
Gastrointestinal Exam
Gastrointestinal Exam: normal bowel sounds, soft, no organomegaly, no pulsatile mass and non distended
Palpation: left upper quadrant: Minimal tenderness and right upper quadrant: Minimal tenderness
Neurological Exam
Neurological Exam: alert, oriented x3, no motor deficits and speech normal
Musculoskeletal Exam
Musculoskeletal Exam: full ROM and no edema
Skin Exam
Skin Exam: normal color, warm/dry, no rash and no petechia
Psychiatric Exam
Psychiatric Exam: normal mood/affect
Course
Orders/Labs/Results
Orders:
Orders
11/10/24
Electrocardiogram (*1) Stat
Reason for Study: Chest Pain
Electrocardiogram (*1) Stat
Reason for Study: Chest Pain
Comment: DONE
11/10/24 02:53
Urinalysis Reflex To Culture Urgent
11/10/24 03:08
Complete Blood Count/With Diff Urgent
Comprehensive Metabolic Panel Urgent
Lactic Acid Urgent
Lipase Urgent
Troponin I Urgent
11/10/24 04:15
US Aorta [US Abdominal Aorta] Urgent
Comment:
Reason For Exam: mid abd pain
11/10/24 05:42
CT Abd/pelvis W Iv Cont Urgent
Comment:
Reason For Exam: abd pain
11/10/24 06:12
Troponin I Urgent
11/10/24 06:21
NG Tube [GI tube insertion- Treatment] ONCE
Abnormal Lab Results
11/10/24
03:08
RBC 4.40 L 10^6/uL
(4.70-6.10)
Hct 38.0 L %
(39.0-52.0)
Absolute Lymphs (auto) 0.5 L 10^3/uL
(1.2-3.4)
Neutrophils % 87.4 H %
(42.2-75.2)
Lymphocytes % 6.8 L %
(20.5-51.1)
Glucose 126 H mg/dl
(70-99)
Alkaline Phosphatase 130 H U/L
(38-126)
11/10/24 03:08
11/10/24 03:08
Vital Signs
Initial and Last Documented VS:
Initial Vital Signs
Temp Pulse Resp BP Pulse Ox
98.3 F 61 13 132/74 99
11/10/24 02:45 11/10/24 02:45 11/10/24 02:45 11/10/24 02:45 11/10/24 02:45
Last Documented Vital Signs
Temp Pulse Resp BP Pulse Ox
98.3 F 55 17 131/66 97
11/10/24 02:45 11/10/24 05:45 11/10/24 05:45 11/10/24 05:00 11/10/24 05:45
*Critical Care Note
Total Time (30-74mins, 75-104mins- exclusive of procedures): Not Applicable
Update Note
Update Note:
EKG shows normal sinus rhythm rate of 63 with normal intervals, normal axis. Ischemia present. This is a normal EKG. When compared with previous EKG dated October 09, 2024, similar morphology
CT abdomen and pelvis with IV contrast
IMPRESSION:
Acute small bowel obstruction with transition point in the lower abdomen on series 201, image 64. Upstream stomach distention. Consider NG tube decompression.
No cholecystitis or pancreatitis. No obstructing renal stone. No fluid collection or free air. Abdominal aorta is of normal caliber. Bladder wall thickening; correlate with urinalysis.
.
ED Attending Note
-
Portions of this chart may have been created with voice recognition software.� Occasional wrong word or��sound alike� substitutions may have occurred due to the inherent limitations of voice recognition software.
Discharge Plan
Departure
Patient Disposition: Admit
Date of Disposition: 11/10/24
Time of Disposition: 06:20
Admit to: Med/Surg
Presentation/result/management discussed w/ accepting MD/DO: Hospitalist
Discharge Problem:
SBO (small bowel obstruction)
Prescriptions:
No Action
fluoxetine 20 mg Capsule
20 mg PO QWEEK
Patient Comments:
10/08/24: Patient does not take as prescribed, trying to wean himself off this medication
doxycycline hyclate 100 mg Capsule
100 mg PO .2XWEEKLY
Patient Comments:
10/08/24: Patient does not take as prescribed, only when he remembers
tadalafil 5 mg Tablet
5 mg PO .2XWEEKLY
Brilinta 90 mg Tablet
90 mg PO BID Qty: 60 11RF
atorvastatin 80 mg Tablet
80 mg PO QPM Qty: 30 11RF
pantoprazole 40 mg Tablet,Delayed Release (Dr/Ec)
40 mg PO DAILY Qty: 30 11RF
metoprolol succinate 25 mg Tablet Extended Release 24 Hr
25 mg PO BID Qty: 60 11RF
lisinopril 2.5 mg Tablet
2.5 mg PO DAILY Qty: 30 11RF
aspirin 81 mg Tablet,Chewable
81 mg PO DAILY Qty: 30 0RF
Referrals:
UNKNOWN - PT DOES,NOT KNOW [Family Provider] -
Interventions
Interventions:
*Risk Screen - Suicide Last Done: 11/10/24 02:45
*General Assessment Last Done: 11/10/24 02:45
*Neglect/Abuse Screening Last Done: 11/10/24 02:45
*ED- Fall Risk Assessment Last Done: 11/10/24 02:56
*ED COVID-19 Vaccine History Last Done: 11/10/24 02:56
GX-Mkcdmj-Ilxrrolmzc Assessment Last Done: 11/10/24 02:56
Discharge Date and Time
Print Language: BELARUSIAN
[2024-11-10 03:48] LABS: ALT (SGPT) 36 U/L (0-50); AST (SGOT) 31 U/L (17-59); Albumin 4.4 g/dl (3.5-5.0); Alkaline Phosphatase 130 U/L (38-126); Blood Urea Nitrogen 16 mg/dl (9-20); Carbon Dioxide 26 mmol/L (22-30); Chloride 99 mmol/L (98-107); Estimated Creatinine Clearance 100 ml/min; Glucose 126 mg/dl (70-99); Lipase 60 U/L (23-300); Potassium 4.3 mmol/L (3.5-5.1); Sodium 136 mmol/L (135-145); Total Bilirubin 1.3 mg/dl (0.2-1.3); Total Protein 6.9 g/dl (6.3-8.2); eGFR > 60.00
[2024-11-10 03:49] LABS: Lactic Acid 1.3 mmol/L (0.7-2.0)
[2024-11-10 04:17] LABS: Troponin I < 0.012 ng/ml
[2024-11-10 06:48] LABS: Troponin I < 0.012 ng/ml
[2024-11-10 08:54] LABS: Glucose - Point of Care 115 mg/dl (70-99)
--- NOTE | 2024-11-10 09:03 | HPS.HSE ---
Family Physician
-
Family Physician: NOT KNOW UNKNOWN - PT DOES
Chief Complaint
-
abdominal pain
History of Present Illness
69yo M with PNHX of prostate CA s/p resection and RT 2 years before admission, HTN, HLD, GERD, CAD s/p PCI in sep 2024 2/2 NSTEMI came with abdominal pain for 1 day duration with bloating and inability to pass gas, improved with NG tube. CT abd
showed SBO. As per patient - this parviz is different from the one he had during his recent ACS.
Medical History
Past Medical History
Past Medical History: Reports Other
Additional Past Medical History:
see HPI
Past Surgical History: Reports Other
Additional Past Surgical History:
See HPI
Social History
Tobacco: Non-smoker
Alcohol: Occasional
Drug: None
Family History
Family History: Not pertinent
Allergies / Home Medications
Allergies reflects when Allergies were last updated in [facility].
Home Medications with original date entered in [facility]
Allergy/Medication List:
Allergies
Allergy/AdvReac Type Severity Reaction Status Date / Time
oxycodone [Oxycodone] Allergy Itching-PER Verified 11/10/24 02:45
COCET
pollen extracts Allergy SNEEZING,ITCHY Verified 11/10/24 02:45
EYES
Metal Allergy Hives, rash Uncoded 11/10/24 02:45
Home Medications
fluoxetine 20 mg capsule 20 mg PO MO 04/26/14
doxycycline hyclate 100 mg capsule 100 mg PO TUTH 10/08/24
tadalafil 5 mg tablet 5 mg PO WEFR 10/08/24
aspirin 81 mg chewable tablet 81 mg PO DAILY Heart disease/condition #30 tabs 10/11/24
atorvastatin 80 mg tablet 80 mg PO QPM High cholesterol #30 tabs 10/11/24
lisinopril 2.5 mg tablet 2.5 mg PO DAILY Heart disease/condition #30 tabs 10/11/24
metoprolol succinate 25 mg tablet,extended release 24 hr 25 mg PO BID Heart disease/condition #60 tabs 10/11/24
pantoprazole 40 mg tablet,delayed release 40 mg PO DAILY Gastrointestinal issue #30 tabs 10/11/24
ticagrelor 90 mg tablet (Brilinta) 90 mg PO BID Heart disease/condition #60 tabs 10/11/24
Review of Systems
-
History Source: Patient
A 12 point ROS was completed and negative except as noted: Yes
Abdomen/GI: Reports See HPI
Physical Exam
Vital Signs
Vital Signs
Temp Pulse Resp BP Pulse Ox
98.3 F 64 14 125/66 95
11/10/24 02:45 11/10/24 07:30 11/10/24 07:30 11/10/24 06:09 11/10/24 07:30
Physical Exam
General: Well Nourished, Conversant and Pain
HEENT: NormoCephalic, Anicteric and Moist mucous membranes
Respiratory: Clear; No Wheezes, Rales or Rhonchi
Cardiac: S1/S2 and Regular Rhythm; No Murmur
GI: Tender and Distended; No Normal Bowel Sounds
Genito-urinary: No costovertebral tender
Musculoskeletal: No Clubbing, No Cyanosis and No Edema
Skin: Warm
Neuro: Awake, Alert, Oriented and AO x 3
Psych: Calm
Laboratory Results
-
Laboratory Results
Lactic Acid 1.3 mmol/L (0.7-2.0) 11/10/24 03:08
Total Bilirubin 1.3 mg/dl (0.2-1.3) 11/10/24 03:08
AST 31 U/L (17-59) 11/10/24 03:08
ALT 36 U/L (0-50) 11/10/24 03:08
Alkaline Phosphatase 130 U/L (38-126) H 11/10/24 03:08
Troponin I < 0.012 ng/ml 11/10/24 06:12
Lipase 60 U/L (23-300) 11/10/24 03:08
Data Reviewed
-
CT Scan: Report Reviewed by me and Discussed with Physician
Lab Data: Labs Reviewed by me
Impression/Plan
-
A/P:
#SBO, most likely 2/2 PMHx of RT to abdominal area
NG tube to low intermittent suction: curently clear yellowish fluid in the can
Advance diet as per GenSx
Pain mgmt
Follow electrolytes
Has Hx of colonic polyp in 2018, recent colonoscopy in 2022 - clean as per patient. Recommend to repeat after resolution of acute issues
Check TSH
Discussed CT scan with radiologist - no concern for abdominal aortha pathology, except of plaque seen
#CAD, s/p PCI
stent on 10/08/24
Troponin WNL on this admission
No ST elevation on EKG
Telemetry
cont rectal ASA
Cardiology for additional advise in mgmt since Brilinta cannot be given
#Ischemic cardiomyopathy
#Pulmonary HTN
#Mild
#Essential HTN
#Anxiety d/o
#GERD
#HLD
Cont home meds
#DJD
Tylenol
PT/OT as needed
DVT ppx hep
Full code
I have spent at least 78min reviewing chart, test results, communication with consultants and providing direct patient care
--- NOTE | 2024-11-10 09:10 | CON.CAR ---
Addendum entered and electronically signed by Cooper Reese MD 11/10/24 12:50:
I saw and examined the patient.
The Application Trainer's note was reviewed and I agree with the note.
Comment:
GEN: No distress, awake, Ox3
HEENT: supple, anicteric, mmm, ng tube
LUNGS: CTA, no wheezes/rales
CV: Reg, S1/S2, 1/6 syst LSB, no gallop
ABD: soft, NT/ND
EXT: No edema
NEURO: Gross non-focal
SKIN: No rash
Plan:
69-year-old male with recent non-STEMI with PCI to mid LAD presents with abdominal pain bloating and small bowel obstruction. NG tube placed. We are asked for continued management regarding aspirin and Brilinta.
Patient was evaluated by surgery and there are no current plans to the operating room. They stated it is stable to resume aspirin and Brilinta. At this point agree with plan to resume dual antiplatelet therapy with recent PCI September 2024.
If there are clear plans to proceed with surgery would hold Brilinta and continue aspirin.
Continue Toprol, lisinopril, and atorvastatin and medical therapy for residual coronary artery disease.
Original Note:
Consultation
Consultation Request
Date/Time Consultation Requested: 11/10/2024, 0900
Date/Time Consultation Performed: 11/10/2024, 0910
Requesting Provider: Dr. Sutton
Performing Provider: MANOJ Douglass for Dr. Reese
Reason for Consultation: Recent STEMI on DAPT, now with SBO
Medical History
-
Chief Complaint: Small bowel obstruction
History of Present Illness:
69-year-old male with h/o NSTEMI 10/08/2024 s/p cath with [place] RAINA to mid LAD resulting in jailed diagonal, also with 40 to 50% residual circumflex and 40% residual RCA stenosis for which medical management was advised. He was started on dual
antiplatelet therapy with aspirin and Brilinta. Troponin peaked at 29.5. Had NSVT improved with initiation of beta-jose and PCI. Has been participating in cardiac rehab.
Patient seen in cardiology office on 11/03/2024 when she had JACIEL and was doing well with no recurrent chest pain at the time of, stable EKG showing sinus bradycardia, T wave inversions anterior.
Presented to ED today with 1 day history of abdominal pain and bloating, CT abdomen showed small bowel obstruction. NG tube placed. Patient switched to rectal aspirin. Cardiology consulted for additional advice and management since oral Brilinta
cannot be given.
Patient currently denies chest pain. Troponin less than 0.012 x 2 . EKG: Sinus bradycardia ant/lat T wave inversions (compared to EKG in office 11/03/2024 so EKG is stable).
Patient reports last dose of Brilinta was 11/09/2024 at 1900.
While in ED he was sitting up in bed and developed significant abdominal pain and felt lightheaded/like he was going to pass out, BP 63/41, BP improved to 124/59 with resolution of lightheadedness.
Review of telemetry, sinus rhythm, heart rates 50s to 60s, dropped to low of 42 bpm
PMH:
NSTEMI 10/08/2024. Peak troponin 29.5.
CAD s/p 3.5 mm Jesus drug-eluting stent to the mid LAD with jailing of the 1st diagonal branch by cardiac cath 10/08/2024
Hyperlipidemia
History of prostate cancer with robotic-assisted prostatectomy.
NSVT
Mild
Mild MR/TR
Past Medical History
Past Medical History: Other (As above)
Past Surgical History: Other (Robotic prostatectomy 04/2014)
Social History
Tobacco: Non-Smoker
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
Family History
Family History: Other (Father with A-fib and pacemaker, mother with NV in her 80s)
Allergies / Home Medications
Allergy/AdvReac Type Severity Reaction Status Date / Time
oxycodone [Oxycodone] Allergy Itching-PER Verified 11/10/24 02:45
COCET
pollen extracts Allergy SNEEZING,ITCHY Verified 11/10/24 02:45
EYES
Metal Allergy Hives, rash Uncoded 11/10/24 02:45
�Medication �Instructions �Recorded �Confirmed �Type
fluoxetine 20 mg capsule 20 mg PO MO 04/26/14 11/10/24 History
doxycycline hyclate 100 mg capsule 100 mg PO TUTH 10/08/24 11/10/24 History
tadalafil 5 mg tablet 5 mg PO WEFR 10/08/24 11/10/24 History
aspirin 81 mg chewable tablet 81 mg PO DAILY Heart 10/11/24 11/10/24 Rx
disease/condition #30 tabs
atorvastatin 80 mg tablet 80 mg PO QPM High cholesterol #30 10/11/24 11/10/24 Rx
tabs
lisinopril 2.5 mg tablet 2.5 mg PO DAILY Heart 10/11/24 11/10/24 Rx
disease/condition #30 tabs
metoprolol succinate 25 mg 25 mg PO BID Heart 10/11/24 11/10/24 Rx
tablet,extended release 24 hr disease/condition #60 tabs
pantoprazole 40 mg tablet,delayed 40 mg PO DAILY Gastrointestinal 10/11/24 11/10/24 Rx
release issue #30 tabs
ticagrelor 90 mg tablet (Brilinta) 90 mg PO BID Heart 10/11/24 11/10/24 Rx
disease/condition #60 tabs
Review of Systems
-
History Source: Patient
All other systems: Negative unless noted
Physical Exam
Vital Signs
Temp Pulse Resp BP Pulse Ox
98.3 F 64 14 125/66 95
11/10/24 02:45 11/10/24 07:30 11/10/24 07:30 11/10/24 06:09 11/10/24 07:30
Lab Results
Troponin I < 0.012 ng/ml 11/10/24 06:12
GEN: No distress, awake, Ox3
HEENT: supple, anicteric, mmm
LUNGS: CTA, no wheezes/rales
CV: Reg, S1/S2, no murmur
ABD: soft, NT/ND
EXT: No edema
NEURO: Gross non-focal
SKIN: No rash
Impression / Plan
-
PCP: Dr. Wooten
Rf Technician: Dr. Hawthorne
Impression:
Small bowel obstruction
NSTEMI, peak troponin 29.5 10/08/2024
CAD
s/p 3.5 x 38 mm Jesus stent to mid LAD, jailed first diagonal 10/08/2024
Hyperlipidemia
Mild /MR/TR
Prostate CA s/p robotic assisted prostatectomy
Hypertension
Bradycardia
Echo 10/09/2024: EF 50 to 55%. Moderate concentric LVH. Apical anterior, apical inferior, apical septum and apex are severely hypokinetic. Mild MR. Mild with peak/mean gradient 26/17 mmHg with MICHAELA 1.2 cm�. Trace AI. Mild TR. PAP 36 mmHg
Echo 07/2024: Normal biventricular size and function, LVEF 55 to 60%, mild to moderate mitral regurgitation, mild aortic stenosis peak/mean 29/16 mmHg, mild aortic regurgitation
Cardiac catheterization 10/08/2024: LM:Short and unobstructed. LAD: Mid 85% stenosis beyond first diagonal s/p 3.5 x 38 mm [place] stent resulting in jailed diagonal. Circumflex: 40 to 50% mid. RCA: Proximal 40%. RPDA ostial 30%. VENTRICULOGRAPHY:
55% with no obvious regional wall motion abnormalities noted.
Plan:
He is 1 month status post non-ST elevation NV and stenting of the mid LAD with a drug-eluting stent. Now with small bowel obstruction with NG tube for bowel decompression. No plan for emergent surgery per surgery note. He has been cleared by
surgery to have NG tube clamped for meds including Brilinta. Resume usual cardiac meds: Brilinta 90 mg twice daily, Lisinopril 2.5 mg daily, metoprolol succinate 25 mg twice daily, atorvastatin 80 mg daily, ASA 81 mg daily
No anginal symptoms and troponins negative.
-Has been doing well status post NSTEMI and RAINA LAD , participating in cardiac rehab without anginal symptoms
-Continue high intensity statin
Telemetry personally reviewed: Normal sinus rhythm, 50s to 60s but occasional dip to 42 bpm
-Monitor on telemetry while inpatient given history of NSVT in past
Data Reviewed
-
EKG: Tracing Personally Visualized and interpreted
Labs: Labs Reviewed by me
--- NOTE | 2024-11-10 09:11 | EDRN ---
Patient had a presyncopal episode, patient states he felt faint and had 10/10 abdominal pain t/o. Patient was noticeably diaphoretic, BP 63/41. Patient HOB was lowered, accucheck 119, IVF bolus started and Dr. Ellis notified and in to see patient.
Orders placed for repeat labs and medications (see MAR).
[2024-11-10 09:17] LABS: % Basophils 0.1 % (0-2); % Eosinophils 0.3 % (0-6); % Immature Granulocytes 0.4 % (0-0.5); % Monocytes 7.3 % (1.7-9.3); % Neutrophils 79.9 % (42.2-75.2); Absolute Lymphocytes 0.9 10^3/uL (1.2-3.4); Absolute Monocytes 0.5 10^3/uL (0.1-0.6); Absolute Neutrophils 5.8 10^3/uL (1.4-6.5); Hematocrit 38.2 % (39.0-52.0); Hemoglobin 13.5 g/dL (13.0-18.0); Mean Corp Hgb Conc. 35.3 g/dL (33.0-37.0); Mean Corpuscular Volume 87.8 fL (80.0-94.0); Mean Platelet Volume 9.4 fL (7.4-10.4); Nucleated Red Blood Cells % 0 % (-); Platelet Count 209 10^3/uL (130-400); Red Blood Cell Count 4.35 10^6/uL (4.70-6.10); Red Cell Dist. Width 12.3 % (11.5-14.5); White Blood Cell Count 7.3 10^3/uL (4.8-10.8)
[2024-11-10] MEDS: NSS 1000 IV (09:17)
[2024-11-10 09:30] LABS: ALT (SGPT) 29 U/L (0-50); AST (SGOT) 30 U/L (17-59); Albumin 3.8 g/dl (3.5-5.0); Alkaline Phosphatase 100 U/L (38-126); Blood Urea Nitrogen 16 mg/dl (9-20); Carbon Dioxide 22 mmol/L (22-30); Chloride 103 mmol/L (98-107); Estimated Creatinine Clearance 114 ml/min; Glucose 118 mg/dl (70-99); INR 0.99; PT 13.4 Sec (11.4-14.6); Potassium 3.9 mmol/L (3.5-5.1); Sodium 133 mmol/L (135-145); Total Bilirubin 1.2 mg/dl (0.2-1.3); eGFR > 60.00
[2024-11-10 09:31] LABS: APTT 29.7 Sec (23.4-35.0)
--- NOTE | 2024-11-10 10:00 | CON.GS ---
Addendum entered and electronically signed by Ji Monteiro MD 11/10/24 15:14:
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 Agree with documented consultation with additions noted here.
Patient's sister is at bedside who is a nurse at [employer].
Patient states he was in his usual baseline state of health until yesterday when he began developing abdominal bloating and distention and discomfort shortly after breakfast. He thought it was related to dietary intake and would improve however
after having dinner his symptoms were exacerbated with worsening abdominal pain, bloating and nausea. He does not recall passing much flatus over the last 24 hours. Last bowel movement 2 days ago. No recent similar symptoms. No previous history
of SBO.
Past abdominal surgical history mainly notable for RAL prostatectomy followed by pelvic radiation therapy. Recent medical history notable for NSTEMI with RAINA currently on Brilinta.
PMH: CAD with RAINA placement 09/2024, prostate CA status post RAL prostatectomy and XRT, GERD, hypertension, hypercholesterolemia,
AFVSS
NAD AAOx3
ABD: Softly protuberant but not tensely distended. Nontender on palpation. No rebound, no rigidity, no guarding.
NG tube in place but is of quite small caliber -flushed and assured that tube valve in correct position as well as to low intermittent suction
CT imaging personally reviewed and interpreted as well as radiologist report. Fluid-filled modestly dilated stomach and proximal small bowel. Transition point in the right lower pelvis with distally decompressed small bowel. There does not appear
to be a closed-loop component. No significant free fluid. No bowel wall thickening edema or inflammatory changes.
Assessment/plan: 69-year-old male with probable small bowel obstruction due to adhesions in the setting of previous history of RAL prostatectomy and XRT post prostatectomy.
No clinical or radiographic signs of immediate bowel threat or compromise.
Abdominal distention and pain relieved with NG tube placement.
We discussed continued nonoperative management given improvement in clinical clinical stability. In light of his recent NSTEMI and RAINA risk-benefit ratio would favor continuing Brilinta and optimistically given his rather prompt clinical
improvement this SBO may be able to be managed nonoperatively.
Repeat abdominal x-ray tomorrow a.m.
NG tube decompression
Follow-up labs in a.m.
Original Note:
Consultation
-
Date/Time Consultation Requested: 11/10/24823
Requesting Provider: Lesley
Performing Provider: Parish Monteiro
Reason for Consultation: SBO
Medical History
-
Chief Complaint: Abd pain
History of Present Illness:
Mr Pérez is a 69 yo male with a h/o NSTEMI last month with placement of RAINA currently on Brilinta and prostate CA treated initially with RAL prostatectomy with subsequent XRT for elevated PSA post op who presents through the ED with abdominal pain
which began last night with bloating and nausea. An NGT was placed in the ED with improvement in symptoms. He has not been passing flatus for the past day or so but denies belching. He denies abdominal pain or nausea currently. On exam, abdomen is
soft, non-tender and not distended.
Past Medical History
Past Medical History: CAD (PCI with RAINA 09/2024), Cancer (Prostate treated with Surgery then XRT), GERD, HTN, Hypercholesterolemia, [place] (09/2024) and Valvular Disease ()
Past Surgical History: Other
Social History
Tobacco: Non-Smoker
Alcohol: Occasional
Family History
Family History: Reviewed & Not Pertinent
Allergies / Home Medications
Allergy/AdvReac Type Severity Reaction Status Date / Time
oxycodone [Oxycodone] Allergy Itching-PER Verified 11/10/24 02:45
COCET
pollen extracts Allergy SNEEZING,ITCHY Verified 11/10/24 02:45
EYES
Metal Allergy Hives, rash Uncoded 11/10/24 02:45
�Medication �Instructions �Recorded �Confirmed �Type
fluoxetine 20 mg capsule 20 mg PO MO 04/26/14 11/10/24 History
doxycycline hyclate 100 mg capsule 100 mg PO TUTH 10/08/24 11/10/24 History
tadalafil 5 mg tablet 5 mg PO WEFR 10/08/24 11/10/24 History
aspirin 81 mg chewable tablet 81 mg PO DAILY Heart 10/11/24 11/10/24 Rx
disease/condition #30 tabs
atorvastatin 80 mg tablet 80 mg PO QPM High cholesterol #30 10/11/24 11/10/24 Rx
tabs
lisinopril 2.5 mg tablet 2.5 mg PO DAILY Heart 10/11/24 11/10/24 Rx
disease/condition #30 tabs
metoprolol succinate 25 mg 25 mg PO BID Heart 10/11/24 11/10/24 Rx
tablet,extended release 24 hr disease/condition #60 tabs
pantoprazole 40 mg tablet,delayed 40 mg PO DAILY Gastrointestinal 10/11/24 11/10/24 Rx
release issue #30 tabs
ticagrelor 90 mg tablet (Brilinta) 90 mg PO BID Heart 10/11/24 11/10/24 Rx
disease/condition #60 tabs
Review of Systems
-
History Source: Patient
All other systems: Negative unless noted
A 10 point review of systems was completed, and was negative except as per HPI.
Physical Exam
Vital Signs
Temp Pulse Resp BP Pulse Ox
98.3 F 54 14 125/66 95
11/10/24 02:45 11/10/24 08:00 11/10/24 07:30 11/10/24 06:09 11/10/24 07:30
11/09/24 11/10/24 11/11/24
06:59 06:59 06:59
Actual Weight 93.4 kg
Body Mass Index (BMI) 30.4
Lab Results
11/10/24 09:08
11/10/24 09:08
WBC 7.3 10^3/uL (4.8-10.8) 11/10/24 09:08
Hgb 13.5 g/dL (13.0-18.0) 11/10/24 09:08
Hct 38.2 % (39.0-52.0) L 11/10/24 09:08
Plt Count 209 10^3/uL (130-400) 11/10/24 09:08
Abs Immat Gran (auto) 0.0 10^3/uL (0-0.05) 11/10/24 09:08
Neutrophils % 79.9 % (42.2-75.2) H 11/10/24 09:08
Physical Exam
General: Well Developed and Well Nourished
HEENT: Moist Mucous Membranes
GI: Soft, Non Tender, Non Distended and Other (NGT with bilious output)
Skin: Warm and Dry
Neuro: Awake, Alert and AO x 3
Psych: Calm
Data Reviewed
-
CT Scan: Image Personally Visualized and interpreted, Report Reviewed by me, Discussed with Physician and Discussed with Patient
Labs: Labs Reviewed by me, Discussed with Physician and Discussed with Patient
Old Records: Reviewed
Assessment / Plan
-
69 yo male with h/o NSTEMI last month and prior RAL prostatectomy with subsequent XRT for prostate CA who presents with one day of nausea and abdominal pain. CT imaging consistent with what is likley an adhesive SBO with transition point in the
right lower quadrant. No evidence of bowel threat/compromise. A small bore NGT was placed in the ED which is functioning and providing symptomatic relief. AFVSS. No leukocytosis. Normal lactic acid.
--NPO/NGT for bowel decompression
--IVF while NPO
--No plans for emergent surgery at this time, will follow for continued improvement with nonoperative measures
--Cardiology consulted to follow given recent [place]. Ok to clamp NGT for meds including Brilinta
[2024-11-10 10:04] LABS: TSH Reflex To Free T4 1.43 uIU/ml (0.47-4.68)
[2024-11-10 11:45] LABS: Troponin I 0.018 ng/ml
[2024-11-10] MEDS: D5LR 1000 IV (12:42)
[2024-11-10] MEDS: BRILINTA 90 MG PO ×2 (12:55→21:02)
[2024-11-10] MEDS: TOPROL XL 25 MG PO (12:55)
[2024-11-10] MEDS: LIPITOR 80 MG PO (12:58)
[2024-11-10] MEDS: HEPARIN 5000 UNITS SC ×2 (18:03→23:45)
[2024-11-10] MEDS: LIPITOR PO (18:13)
[2024-11-10 18:33] LABS: Troponin I < 0.012 ng/ml
[2024-11-10] MEDS: TOPROL XL PO (21:37)
[2024-11-10 23:54] LABS: Troponin I 0.017 ng/ml
[2024-11-11] MEDS: D5LR 1000 IV ×2 (00:07→15:22)
[2024-11-11 03:15] VITALS: BP 142/73
--- NOTE | 2024-11-11 04:00 | PTCARENOTE ---
Patient HR was mid 40-50s. Contacted JUDGE CLERK to hold toprol XL dose. Patient remained SB overnight, asymptomatic, SBP 130s. Patient did decrease to 37-38 HR, inverted t waves, non-sustaining. Again contacted JUDGE CLERK to review cardiac history. No new
interventions added overnight. Continue to monitor patient if HR sustains lower than 40s.
[2024-11-11 06:00] VITALS: BMI 29.3
[2024-11-11 06:01] LABS: % Basophils 0.4 % (0-2); % Eosinophils 4.1 % (0-6); % Immature Granulocytes 0.2 % (0-0.5); % Lymphocytes 13.1 % (20.5-51.1); % Monocytes 8.4 % (1.7-9.3); % Neutrophils 73.8 % (42.2-75.2); Absolute Eosinophils 0.2 10^3/uL (0-0.7); Absolute Lymphocytes 0.7 10^3/uL (1.2-3.4); Absolute Monocytes 0.4 10^3/uL (0.1-0.6); Absolute Neutrophils 3.8 10^3/uL (1.4-6.5); Hematocrit 37.1 % (39.0-52.0); Mean Corpuscular Hgb 31.3 pg (27.0-31.0); Mean Corpuscular Volume 89.4 fL (80.0-94.0); Mean Platelet Volume 9.6 fL (7.4-10.4); Nucleated Red Blood Cells % 0 % (-); Platelet Count 187 10^3/uL (130-400); Red Blood Cell Count 4.15 10^6/uL (4.70-6.10); Red Cell Dist. Width 12.6 % (11.5-14.5); White Blood Cell Count 5.1 10^3/uL (4.8-10.8)
[2024-11-11 06:24] LABS: ALT (SGPT) 28 U/L (0-50); AST (SGOT) 27 U/L (17-59); Albumin 3.6 g/dl (3.5-5.0); Alkaline Phosphatase 105 U/L (38-126); Blood Urea Nitrogen 13 mg/dl (9-20); Carbon Dioxide 22 mmol/L (22-30); Chloride 109 mmol/L (98-107); Estimated Creatinine Clearance > 125 ml/min; Glucose 110 mg/dl (70-99); Magnesium 2.1 mg/dl (1.6-2.3); Sodium 139 mmol/L (135-145); Total Bilirubin 1.1 mg/dl (0.2-1.3); Total Protein 5.9 g/dl (6.3-8.2); eGFR > 60.00
[2024-11-11 07:07] LABS: Urine Albumin Negative (Neg - Trace); Urine Bilirubin Negative (Negative); Urine Character Clear (Clear); Urine Color Yellow; Urine Glucose Negative (Negative); Urine Ketone Negative (Negative); Urine Leukocyte Negative (Negative); Urine Nitrite Negative (Negative); Urine Occult Blood 3+ (Negative); Urine Specific Gravity 1.015 (<1.030); Urine Urobilinogen Negative (Neg - 1+)
[2024-11-11 07:25] VITALS: BP 141/75
[2024-11-11 07:36] LABS: Urine Mucus Many
[2024-11-11 07:37] LABS: Urine Amorphous Seen; Urine Squamous Cell 0-2 /LPF (Few); Urine Urothelial Cell 0-2 /LPF (FEW)
[2024-11-11 07:39] LABS: Urine White Cell 0-2 /HPF (0-5)
[2024-11-11] MEDS: PROTONIX IV 40 MG IV (08:24)
[2024-11-11] MEDS: LOW STRENGTH ASPIRIN 81 MG PO (08:24)
[2024-11-11] MEDS: NSS (PRESERVATIVE FREE) 10 ML IV (08:24)
[2024-11-11] MEDS: HEPARIN 5000 UNITS SC ×3 (08:25→23:19)
[2024-11-11] MEDS: BRILINTA 90 MG PO ×2 (08:25→20:47)
[2024-11-11] MEDS: TOPROL XL PO ×2 (09:00→22:26)
--- NOTE | 2024-11-11 10:45 | W.PN.HOSP.TC ---
Today's Communication/Plan
-
cont non-operative mgmt
decrease toprol
Assessment / Plan
Assessment / Plan
69yo M with PNHX of prostate CA s/p resection and RT 2 years before admission, HTN, HLD, GERD, CAD s/p PCI in sep 2024 2/2 NSTEMI came with abdominal pain for 1 day duration with bloating and inability to pass gas, improved with NG tube. CT abd
showed SBO. Had BM later with improvement in pain
A/P:
#SBO, most likely 2/2 PMHx of RT to abdominal area
NG tube to low intermittent suction: currently clear yellowish fluid in the can
Advance diet as per GenSx
Pain mgmt
Follow electrolytes
Has Hx of colonic polyp in 2018, recent colonoscopy in 2022 - clean as per patient. Recommend to repeat after resolution of acute issues
TSH WNL
Discussed CT scan with radiologist - no concern for abdominal aorta pathology, except of plaque seen
#CAD, s/p PCI
#Bradycardia with intermittent dizziness
Decrease toprol
stent on 10/08/24
Troponin WNL on this admission
No ST elevation on EKG
Telemetry
cont DAPT with clamping of NG for 30min when administering meds
Cardiology follows
#Ischemic cardiomyopathy
#Pulmonary HTN
#Mild
#Essential HTN
#Anxiety d/o
#GERD
#HLD
Cont home meds
#DJD
Tylenol
PT/OT as needed
DVT ppx hep
Full code
I have spent at least 58min reviewing chart, test results, communication with consultants and providing direct patient care
Anticipated Discharge: > 48 hours
Subjective/Interval History
-
Date of Service: November 11, 2024
Objective Data
-
Labs:
Laboratory Results
11/11/24
05:08
WBC 5.1
Hgb 13.0
Hct 37.1 L
Plt Count 187
Sodium 139
Potassium 4.0
Chloride 109 H
Carbon Dioxide 22
BUN 13
Creatinine 0.6 L
Glucose 110 H
Calcium 9.0
Total Bilirubin 1.1
AST 27
ALT 28
Alkaline Phosphatase 105
Vital Signs:
Vital Signs
Temp Pulse Resp BP Pulse Ox
97.7 F 45 15 141/75 100
11/11/24 07:25 11/11/24 09:00 11/11/24 07:25 11/11/24 07:25 11/11/24 07:25
I&O
11/10/24 11/11/24 11/12/24
06:59 06:59 06:59
Intake Total 1060 / 1060
Balance 1060 / 1060
Review of Systems
-
History Source: Patient
All other systems: Reviewed and negative
Physical Exam
-
General: No Apparent Distress
HEENT: Normocephalic
Cardiac: Regular Rhythm
GI: Soft, Nontender and Nondistended
Neuro: Awake, Alert, Oriented and AO x 3
Psych: Calm
[2024-11-11 11:32] VITALS: BP 140/67
--- NOTE | 2024-11-11 13:45 | W.PN.GS2 ---
Addendum entered and electronically signed by Ankur Cisneros MD 11/11/24 16:09:
I saw and examined the patient.
The Mate Ship's note was reviewed and I agree with the note.
Comment: Improving, passing flatus and large BM this am with relief. Nurys tripathi, nt. DC NGT, trial cld
Original Note:
Today's Communication / Plan
-
d/c ngt, trial of clears
Assessment / Plan
-
69-year-old male with recent NSTEMI and RAINA placement presenting with probable small bowel obstruction due to adhesions in the setting of previous history of RAL prostatectomy and XRT post prostatectomy.
Symptomatic improvement with NGT decompression
Passing stool/flatus. No further distention, pain or nausea
AFVSS
Labs stable
--NGT removed at bedside
--Trial of clears
--Follow for continued improvement
--Ok to continue PO cardiac meds including ticagrelor
--OOB/ambulate
Subjective Data
-
Date of Service: November 11, 2024
Patient seen and examined at bedside with Dr. Cisneros. Denies n/v. Passing gas and had a very large BM. Denies pain.
Objective Data
-
Intake and Output
11/10/24 11/11/24 11/12/24
06:59 06:59 06:59
Intake Total 1060 / 1060
Balance 1060 / 1060
Intake:
Oral fluids 100 / 100
IV fluids (Total) 960 / 960
Other:
Number of approximated MODERATE 3
amounts of urine
Vital Signs
Temp Pulse Resp BP Pulse Ox
98.2 F 51 15 140/67 98
11/11/24 11:32 11/11/24 11:32 11/11/24 11:32 11/11/24 11:32 11/11/24 11:32
Lab Results
11/11/24 05:08
11/11/24 05:08
Calcium 9.0 mg/dl (8.4-10.2) 11/11/24 05:08
Magnesium 2.1 mg/dl (1.6-2.3) 11/11/24 05:08
Total Bilirubin 1.1 mg/dl (0.2-1.3) 11/11/24 05:08
AST 27 U/L (17-59) 11/11/24 05:08
ALT 28 U/L (0-50) 11/11/24 05:08
Alkaline Phosphatase 105 U/L (38-126) 11/11/24 05:08
Total Protein 5.9 g/dl (6.3-8.2) L 11/11/24 05:08
Albumin 3.6 g/dl (3.5-5.0) 11/11/24 05:08
Physical Exam
-
NAD
ABD soft, nt, nd
NGT with minimal gastric outputs
[2024-11-11 13:50] LABS: Glycohemoglobin (HgbA1c) 5.7 % (4.0-5.6)
[2024-11-11 15:12] VITALS: BP 158/78
[2024-11-11] MEDS: LIPITOR 80 MG PO (17:19)
[2024-11-11 19:18] VITALS: BP 151/78
[2024-11-11 22:20] VITALS: BP 140/73
[2024-11-12 03:13] VITALS: BP 129/77
[2024-11-12 06:00] VITALS: BMI 29.1
[2024-11-12 06:49] LABS: % Basophils 0.7 % (0-2); % Eosinophils 6.3 % (0-6); % Immature Granulocytes 0.2 % (0-0.5); % Lymphocytes 15.4 % (20.5-51.1); % Monocytes 8.2 % (1.7-9.3); % Neutrophils 69.2 % (42.2-75.2); Absolute Eosinophils 0.4 10^3/uL (0-0.7); Absolute Lymphocytes 0.9 10^3/uL (1.2-3.4); Absolute Monocytes 0.5 10^3/uL (0.1-0.6); Hematocrit 38.5 % (39.0-52.0); Hemoglobin 13.7 g/dL (13.0-18.0); Mean Corp Hgb Conc. 35.6 g/dL (33.0-37.0); Mean Corpuscular Hgb 31.8 pg (27.0-31.0); Mean Corpuscular Volume 89.3 fL (80.0-94.0); Mean Platelet Volume 9.5 fL (7.4-10.4); Nucleated Red Blood Cells % 0 % (-); Platelet Count 186 10^3/uL (130-400); Red Blood Cell Count 4.31 10^6/uL (4.70-6.10); Red Cell Dist. Width 12.4 % (11.5-14.5); White Blood Cell Count 5.7 10^3/uL (4.8-10.8)
[2024-11-12 07:17] LABS: ALT (SGPT) 28 U/L (0-50); AST (SGOT) 29 U/L (17-59); Albumin 3.9 g/dl (3.5-5.0); Alkaline Phosphatase 107 U/L (38-126); Blood Urea Nitrogen 8 mg/dl (9-20); Calcium 9.3 mg/dl (8.4-10.2); Carbon Dioxide 27 mmol/L (22-30); Chloride 104 mmol/L (98-107); Estimated Creatinine Clearance 118 ml/min; Glucose 93 mg/dl (70-99); Sodium 139 mmol/L (135-145); eGFR > 60.00
[2024-11-12 07:40] VITALS: BP 144/79
[2024-11-12] MEDS: LOW STRENGTH ASPIRIN 81 MG PO (07:57)
[2024-11-12] MEDS: TOPROL XL 12.5 MG PO ×2 (07:57→19:26)
[2024-11-12] MEDS: NSS (PRESERVATIVE FREE) 10 ML IV (07:58)
[2024-11-12] MEDS: BRILINTA 90 MG PO ×2 (07:58→19:26)
[2024-11-12] MEDS: PROTONIX IV 40 MG IV (07:58)
[2024-11-12] MEDS: HEPARIN 5000 UNITS SC ×3 (07:58→23:00)
--- NOTE | 2024-11-12 09:26 | CM ---
Initial assessment completed
Pharmacy verified: [facility] @ [address] [facility]
Family Physician: Joel Wooten DO; [address], [place], [place]
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
PLOF: independent with ambulation, stairs, and ADLs; drives; retired; currently going to Cardiac Rehab @
NO SNF utilization history
Recent home care with [facility]
Sister will transport home
Plan: Discharge to home when medically stable; CM will monitor for discharge needs and support accordingly
--- NOTE | 2024-11-12 10:22 | W.PN.HOSP.TC ---
Today's Communication/Plan
-
non-tender
BM a night before
Assessment / Plan
Assessment / Plan
69yo M with PNHX of prostate CA s/p resection and RT 2 years before admission, HTN, HLD, GERD, CAD s/p PCI in sep 2024 2/2 NSTEMI came with abdominal pain for 1 day duration with bloating and inability to pass gas, improved with NG tube. CT abd
showed SBO. Had BM later with improvement in pain
A/P:
#SBO, most likely 2/2 PMHx of RT to abdominal area
NG tube to low intermittent suction on admission, removed on 11/11/24
Advance diet as per GenSx
Pain mgmt
Follow electrolytes
Has Hx of colonic polyp in 2018, recent colonoscopy in 2022 - clean as per patient. Recommend to repeat after resolution of acute issues
TSH WNL
Discussed CT scan with radiologist - no concern for abdominal aorta pathology, except of plaque seen
#CAD, s/p PCI
#Bradycardia with intermittent dizziness
Decrease toprol
stent on 10/08/24
Troponin WNL on this admission
No ST elevation on EKG
Telemetry
cont DAPT with clamping of NG for 30min when administering meds
Cardiology follows
#Ischemic cardiomyopathy
#Pulmonary HTN
#Mild
#Essential HTN
#Anxiety d/o
#GERD
#HLD
Cont home meds
#DJD
Tylenol
PT/OT as needed
DVT ppx hep
Full code
I have spent at least 38min reviewing chart, test results, communication with consultants and providing direct patient care
Anticipated Discharge: Within 24 hours
Subjective/Interval History
-
Date of Service: November 12, 2024
Objective Data
-
Labs:
Laboratory Results
11/12/24
06:08
WBC 5.7
Hgb 13.7
Hct 38.5 L
Plt Count 186
Sodium 139
Potassium 4.0
Chloride 104
Carbon Dioxide 27
BUN 8 L
Creatinine 0.6 L
Glucose 93
Calcium 9.3
Total Bilirubin 1.0
AST 29
ALT 28
Alkaline Phosphatase 107
Vital Signs:
Vital Signs
Temp Pulse Resp BP Pulse Ox
98.0 F 61 15 144/79 98
11/12/24 07:40 11/12/24 07:57 11/12/24 07:40 11/12/24 07:57 11/12/24 07:40
I&O
11/11/24 11/12/24 11/13/24
06:59 06:59 06:59
Intake Total 1060 / 1060 1200 / 1200
Balance 1060 / 1060 1200 / 1200
Review of Systems
-
History Source: Patient
All other systems: Reviewed and negative
Physical Exam
-
General: No Apparent Distress
HEENT: Normocephalic
Respiratory: Clear to Auscultation
GI: Soft, Nontender and Nondistended
Skin: Warm
Neuro: Awake, Alert, Oriented and AO x 3
Psych: Calm
[2024-11-12 11:12] VITALS: BP 149/81
--- NOTE | 2024-11-12 14:10 | W.PN.GS2 ---
Addendum entered and electronically signed by Ankur Cisneros MD 11/12/24 15:06:
I saw and examined the patient.
The Lung Gun Operator's note was reviewed and I agree with the note.
Comment: Improving. Adv to LRD
Original Note:
Today's Communication / Plan
-
Advance diet
Assessment / Plan
-
69-year-old male with recent NSTEMI and RAINA placement presenting with probable small bowel obstruction due to adhesions in the setting of previous history of RAL prostatectomy and XRT post prostatectomy.
Symptomatic improvement with NGT decompression, removed on 11/12 and diet advanced to clears
Passing stool/flatus. No further distention, pain or nausea
AFVSS
Labs stable
--Start on low residue diet
--Ok to continue PO cardiac meds including ticagrelor
--OOB/ambulate
Ready for d/c from surgical standpoint once tolerating diet
Subjective Data
-
Date of Service: November 12, 2024
Patient seen and examined at bedside with Dr. Cisneros. Denies n/v. Tolerating liquids. Passing flatus. Some small bm's overnight into this am. Denies abdominal pain. Sister at bedside, questions addressed.
Objective Data
-
Intake and Output
11/11/24 11/12/24 11/13/24
06:59 06:59 06:59
Intake Total 1060 / 1060 1200 / 1200
Balance 1060 / 1060 1200 / 1200
Intake:
Oral fluids 100 / 100 1200 / 1200
IV fluids (Total) 960 / 960
Other:
Number of approximated MODERATE 3 1
amounts of urine
Vital Signs
Temp Pulse Resp BP Pulse Ox
98.2 F 61 15 149/81 100
11/12/24 11:12 11/12/24 11:12 11/12/24 11:12 11/12/24 11:12 11/12/24 11:12
Lab Results
11/12/24 06:08
11/12/24 06:08
Calcium 9.3 mg/dl (8.4-10.2) 11/12/24 06:08
Magnesium 2.1 mg/dl (1.6-2.3) 11/11/24 05:08
Total Bilirubin 1.0 mg/dl (0.2-1.3) 11/12/24 06:08
AST 29 U/L (17-59) 11/12/24 06:08
ALT 28 U/L (0-50) 11/12/24 06:08
Alkaline Phosphatase 107 U/L (38-126) 11/12/24 06:08
Total Protein 6.0 g/dl (6.3-8.2) L 11/12/24 06:08
Albumin 3.9 g/dl (3.5-5.0) 11/12/24 06:08
Physical Exam
-
NAD
ABD soft, nt, nd
[2024-11-12] MEDS: LIPITOR 80 MG PO (18:02)
[2024-11-12 19:56] VITALS: BP 139/80
[2024-11-12 23:22] VITALS: BP 140/84
[2024-11-13 03:09] VITALS: BP 141/75
[2024-11-13 06:00] VITALS: BMI 28.9
[2024-11-13 07:22] VITALS: BP 152/84
[2024-11-13] MEDS: BRILINTA 90 MG PO (08:07)
[2024-11-13] MEDS: TOPROL XL 12.5 MG PO (08:07)
[2024-11-13] MEDS: LOW STRENGTH ASPIRIN 81 MG PO (08:07)
[2024-11-13] MEDS: NSS (PRESERVATIVE FREE) 10 ML IV (08:08)
[2024-11-13] MEDS: HEPARIN 5000 UNITS SC (08:08)
[2024-11-13] MEDS: PROTONIX IV 40 MG IV (08:08)
--- NOTE | 2024-11-13 10:14 | W.PN.HOSP.TC ---
Today's Communication/Plan
-
if trial of low residue passed -d/c
Assessment / Plan
Assessment / Plan
69yo M with PNHX of prostate CA s/p resection and RT 2 years before admission, HTN, HLD, GERD, CAD s/p PCI in sep 2024 2/2 NSTEMI came with abdominal pain for 1 day duration with bloating and inability to pass gas, improved with NG tube. CT abd
showed SBO. Had BM later with improvement in pain, trial of low residue
A/P:
#SBO, most likely 2/2 PMHx of RT to abdominal area
NG tube to low intermittent suction on admission, removed on 11/11/24
Advance diet as per GenSx
Pain mgmt
Follow electrolytes
Has Hx of colonic polyp in 2018, recent colonoscopy in 2022 - clean as per patient. Recommend to repeat after resolution of acute issues
TSH WNL
Discussed CT scan with radiologist - no concern for abdominal aorta pathology, except of plaque seen
#CAD, s/p PCI
#Bradycardia with intermittent dizziness
Decrease toprol
stent on 10/08/24
Troponin WNL on this admission
No ST elevation on EKG
Telemetry
cont DAPT with clamping of NG for 30min when administering meds
Cardiology follows
#Ischemic cardiomyopathy
#Pulmonary HTN
#Mild
#Essential HTN
#Anxiety d/o
#GERD
#HLD
Cont home meds
#DJD
Tylenol
PT/OT as needed
DVT ppx hep
Full code
I have spent at least 38min reviewing chart, test results, communication with consultants and providing direct patient care
Anticipated Discharge: Within 24 hours
Subjective/Interval History
-
Date of Service: November 13, 2024
Objective Data
-
Vital Signs:
Vital Signs
Temp Pulse Resp BP Pulse Ox
98.6 F 65 17 152/84 98
11/13/24 07:22 11/13/24 07:22 11/13/24 07:22 11/13/24 07:22 11/13/24 07:22
I&O
11/12/24 11/13/24 11/14/24
06:59 06:59 06:59
Intake Total 1200 / 1200
Balance 1200 / 1200
Review of Systems
-
History Source: Patient
All other systems: Reviewed and negative
Physical Exam
-
General: Comfortable
Neuro: Awake, Alert, Oriented and AO x 3
Psych: Calm
--- NOTE | 2024-11-13 10:30 | W.PN.GS2 ---
Today's Communication / Plan
-
LRD
Dispo planning
Assessment / Plan
-
69-year-old male with recent NSTEMI and RAINA placement presenting with probable small bowel obstruction due to adhesions in the setting of previous history of RAL prostatectomy and XRT post prostatectomy.
Passing stool/flatus. No further distention, pain or nausea
Tolerating LRD
AFVSS
Labs stable
--Continue low residue diet upon discharge for the short term
--Ready for d/c from surgical standpoint
Subjective Data
-
Date of Service: November 13, 2024
Patient seen and examined at bedside with Dr Euceda. Denies n/v. Tolerating diet. Denies abdominal pain. Ambulating in halls. Passing flatus and some loose stools.
Objective Data
-
Intake and Output
11/12/24 11/13/24 11/14/24
06:59 06:59 06:59
Intake Total 1200 / 1200
Balance 1200 / 1200
Intake:
Oral fluids 1200 / 1200
Other:
Number of approximated MODERATE 1 2
amounts of urine
Vital Signs
Temp Pulse Resp BP Pulse Ox
98.6 F 65 17 152/84 98
11/13/24 07:22 11/13/24 07:22 11/13/24 07:22 11/13/24 07:22 11/13/24 07:22
Lab Results
11/12/24 06:08
11/12/24 06:08
Calcium 9.3 mg/dl (8.4-10.2) 11/12/24 06:08
Magnesium 2.1 mg/dl (1.6-2.3) 11/11/24 05:08
Total Bilirubin 1.0 mg/dl (0.2-1.3) 11/12/24 06:08
AST 29 U/L (17-59) 11/12/24 06:08
ALT 28 U/L (0-50) 11/12/24 06:08
Alkaline Phosphatase 107 U/L (38-126) 11/12/24 06:08
Total Protein 6.0 g/dl (6.3-8.2) L 11/12/24 06:08
Albumin 3.9 g/dl (3.5-5.0) 11/12/24 06:08
Physical Exam
-
NAD
ABD soft, nt, nd
--- NOTE | 2024-11-13 10:33 | CM ---
Chart reviewed and plan is to home when stable, patient assists with caring for his mother.
Plan; Home no needs.
[2024-11-13 11:15] VITALS: BP 140/79
[2024-11-13] MEDS: PROZAC 20 MG PO (13:00)
[2024-11-13] MEDS: ZESTRIL 2.5 MG PO (13:00)
--- NOTE | 2024-11-13 13:13 | W.DCSUMMARY ---
Discharge Summary
Discharge Data
Date of Admission: 11/10/24
Date of Discharge: 11/13/24
-
Pending Results: No
Hospital Course
69yo M with PNHX of prostate CA s/p resection and RT 2 years before admission, HTN, HLD, GERD, CAD s/p PCI in sep 2024 2/2 NSTEMI came with abdominal pain for 1 day duration with bloating and inability to pass gas, improved with NG tube. CT abd
showed SBO. Had BM later with improvement in pain, trial of low residue passed without GI symptoms. GenSx though that SBO developed 2/2 adhesions after previous RT and urologic procedures
Toprol reduced 2/2 symptomatic bradycardia
I have spent at least 38min reviewing chart, test results, communication with consultants and providing direct patient care
Patient was managed for:
#SBO, most likely 2/2 PMHx of RT to abdominal area
#CAD, s/p PCI
#Bradycardia with intermittent dizziness
#Ischemic cardiomyopathy
#Pulmonary HTN
#Mild
#Essential HTN
#Anxiety d/o
#GERD
#HLD
#DJD
#Frequrent sty - on doxy ppx as per ophthalm
Discharge Plan
-
Patient Disposition: Home (Routine Discharge)
Discharge Diagnosis/Procedures: SBO
Diet: Low Fiber
Referrals:
UNKNOWN - PT DOES,NOT KNOW [Family Provider] -
Prescriptions:
New
metoprolol succinate 25 mg Tablet Extended Release 24 Hr
12.5 mg PO BID Qty: 30 0RF
Continued
fluoxetine 20 mg Capsule
20 mg PO MO
doxycycline hyclate 100 mg Capsule
100 mg PO TUTH
tadalafil 5 mg Tablet
5 mg PO WEFR
Brilinta 90 mg Tablet
90 mg PO BID Qty: 60 11RF
atorvastatin 80 mg Tablet
80 mg PO QPM Qty: 30 11RF
pantoprazole 40 mg Tablet,Delayed Release (Dr/Ec)
40 mg PO DAILY Qty: 30 11RF
lisinopril 2.5 mg Tablet
2.5 mg PO DAILY Qty: 30 11RF
aspirin 81 mg Tablet,Chewable
81 mg PO DAILY Qty: 30 0RF
Discontinued
metoprolol succinate 25 mg Tablet Extended Release 24 Hr
25 mg PO BID Qty: 60 11RF
Discharge Orders:
Discharge Patient (As Directed); Ordered 11/13/24
Ordered By: Dusty Sutton
Discharge Date and Time
Print Language: POLISH
[2024-11-13 14:49] VITALS: BP 163/89
== END 2024-11-13 15:39 | disposition home or self-care (01) | DRG 390 ==
LOC: 4 WEST ACU 09:00
PROVIDERS: ADMITTING PHYSICIAN Internal Medicine; CONSULT PHYSICIAN Internal Medicine Cardiovascular Disease; CONSULT PHYSICIAN Surgery; EMERGENCY PHYSICIAN Student in an Organized Health Care Education/Training Program
DX: K56.609 Unspecified intestinal obstruction, unspecified as to partial versus complete obstruction (principal); I25.10 Atherosclerotic heart disease of native coronary artery without angina pectoris; Z95.5 Presence of coronary angioplasty implant and graft; I25.5 Ischemic cardiomyopathy; I27.20 Pulmonary hypertension, unspecified; I10 Essential (primary) hypertension; F41.9 Anxiety disorder, unspecified; K21.9 Gastro-esophageal reflux disease without esophagitis; E78.00 Pure hypercholesterolemia, unspecified; M19.90 Unspecified osteoarthritis, unspecified site; Z79.02 Long term (current) use of antithrombotics/antiplatelets; Z79.82 Long term (current) use of aspirin; Z79.899 Other long term (current) drug therapy; Z82.49 Family history of ischemic heart disease and other diseases of the circulatory system; Z85.46 Personal history of malignant neoplasm of prostate; Z86.0100 Personal history of colon polyps, unspecified
CPT/HCPCS: 74018; 74177; 80053; 81003; 81015; 82962; 83036; 83605; 83690; 83735; 84443; 84484; 85025; 85610; 85730; 93005; 96360; 99285; Q9967

== ENCOUNTER 2024-11-20 12:03 | Outpatient (RCR) | payer OTHER, SELFPAY | END 2024-11-20 23:59 | disposition home or self-care (01) | LOC: CRHB 12:03 | PROVIDERS: ATTENDING PHYSICIAN Internal Medicine Cardiovascular Disease | DX: I25.10 Atherosclerotic heart disease of native coronary artery without angina pectoris (principal); I21.4 Non-ST elevation (NSTEMI) myocardial infarction (principal); Z95.5 Presence of coronary angioplasty implant and graft; I25.2 Old myocardial infarction | CPT/HCPCS: G0422; G0423 ==

== ENCOUNTER 2024-12-20 11:32 | Outpatient (RCR) | payer OTHER, SELFPAY | END 2024-12-20 23:59 | disposition home or self-care (01) | LOC: CRHB 11:32 | PROVIDERS: ATTENDING PHYSICIAN Internal Medicine Cardiovascular Disease | DX: I21.4 Non-ST elevation (NSTEMI) myocardial infarction (principal); I25.2 Old myocardial infarction (principal); Z95.5 Presence of coronary angioplasty implant and graft | CPT/HCPCS: G0422; G0423 ==

== ENCOUNTER → 2025-01-05 14:12 | Outpatient (REF) | payer OTHER, SELFPAY | LOC: HWRAD 14:12 | PROVIDERS: ATTENDING PHYSICIAN Nurse Practitioner Family; FAMILY PHYSICIAN Family Medicine | DX: R31.9 Hematuria, unspecified (principal); Z90.79 Acquired absence of other genital organ(s); Z85.46 Personal history of malignant neoplasm of prostate | CPT/HCPCS: 76770 ==

== ENCOUNTER 2025-01-19 09:46 | Outpatient (RCR) | payer OTHER, SELFPAY | END 2025-01-19 23:59 | disposition home or self-care (01) | LOC: CRHB 09:46 | PROVIDERS: ATTENDING PHYSICIAN Internal Medicine Cardiovascular Disease | DX: I21.4 Non-ST elevation (NSTEMI) myocardial infarction (principal); I25.10 Atherosclerotic heart disease of native coronary artery without angina pectoris (principal); Z95.5 Presence of coronary angioplasty implant and graft; I25.2 Old myocardial infarction | CPT/HCPCS: G0422; G0423 ==

== ENCOUNTER 2025-02-06 11:50 | Emergency (ER) | payer OTHER, SELFPAY ==
[2025-02-06 11:53] VITALS: BP 127/73
--- NOTE | 2025-02-06 11:53 | ED.GENMED ---
History of Present Illness
<Damir Presley DO King - Last Filed: 02/07/25 23:11>
General
Chief Complaint: Fainting/Passed Out
Time Seen by Provider: 02/06/25 11:53
History of Present Illness
History of Present Illness:
TIME OF INITIAL EVALUATION
- 12 PM
REVIEW OF OLD RECORDS
- The patient has history of high blood pressure and hyperlipidemia, prostate cancer, LAD stent 2024. I reviewed records, the patient was admitted here in October 2024 and had SBO at that time. He was admitted in September 2024 with non-STEMI.
CHIEF COMPLAINT(S)
Burning sensation in the penis, blood in urine, and a fall following a cystoscopy procedure.
HISTORY OF PRESENT ILLNESS
The patient is a 69-year-old male with a history of elevated PSA levels who recently underwent a cystoscopy today. Post-procedure, the patient experienced significant burning pain in the penis and noticed blood in the urine. This morning, after
preparing breakfast, the patient went to the bathroom and while attempting to stand after a bowel movement, he experienced severe burning pain localized to the penis, leading to a fall. The patients mother reported finding him on the floor. The
patient recalls attempting to alleviate the burning pain by massaging the area but has limited memory of the events immediately surrounding the fall. The patient also sustained an abrasion on the inner upper part of the left knee during the
incident. No significant bony tenderness was noted upon physical examination.
PHYSICAL EXAM
- General: Patient alert
- Skin: Abrasion noted on the inner upper part of the left knee
- Musculoskeletal: No bony tenderness in the knee area
- Vital Signs: Heart rate slightly low, blood pressure normal, oxygen saturation excellent
- Nursing notes reviewed and vital signs reviewed- General: Well appearing in no distress
- HEENT: Moist oral mucosa
- Cardiovascular: No murmurs, normal heart rate, regular rhythm, No chest wall tenderness
- Pulmonary: No respiratory distress, breath sounds are clear and equal
- Abdomen: Soft with no peritoneal signs, no tenderness
- Neurologic: Excellent strength all extremities, no coordination deficits
- Psychiatric: Appropriate mental status, normal insight and judgement
PLAN
1. Obtain X-rays of the left knee to assess for potential injury.
2. Notify the urologist of the patients post-procedural complications and current condition.
3. Perform blood work to evaluate the patients overall health and assess any procedural complications.
DIFFERENTIAL DIAGNOSIS
The Differential Diagnosis includes, in no particular order and is not limited to:
1. Post-cystoscopy complications
2. Urinary tract infection
3. Urethral injury
4. Prostatitis
5. Hematuria due to instrumentation
6. Orthostatic hypotension causing the fall
7. Urinary retention
8. Bladder neck obstruction
9. Coagulopathy
10. Prostate cancer
RADIOLOGY
- X-ray left knee shows no acute abnormality
EKG
- Sinus 51, first-degree AV block, normal axis
LABS
- White count normal, hemoglobin 12.3 which is just slightly lower than baseline of 13, chemistries unremarkable
UPDATE
- The patient has been having intermittent episodes of 'dribbling urine'. There has been some gross hematuria, nurse performed bladder scan which showed greater than 900 mL of urine on ultrasound
I notified Dr. Akins of patient's presentation in the Emergency Department
The patient was found to have a bladder scan of over 900 mL. [address] to [address] a catheter but this was unsuccessful I also tried a 20 [place] three-way catheter and was unsuccessful. I have asked Dr. Akins for assistance and he
states that he has office hours until 4 PM but then will come over.
SUMMARY OF ENCOUNTER
The patient, a 69-year-old male, presented to the emergency department with a burning sensation in the penis, blood in urine, and experienced a fall following a cystoscopy procedure. The patient has a history of elevated PSA levels and experienced
significant discomfort post-procedure, including a severe burning pain leading to a fall. An abrasion on the left knee was noted, but no significant bony tenderness was observed.
PLAN
- Obtain X-rays of the left knee to assess for potential injury.
- Notify the urologist of the patients post-procedural complications and current condition.
- Perform blood work to evaluate the patients overall health and assess any procedural complications.
INDEPENDENT INTERPRETATION OF TESTS
- My independent interpretation of the x-ray is negative for any acute injury to the left knee.
MANAGEMENT OF THE PATIENTS CARE WAS DISCUSSED WITH
- Dr. Akins was consulted concerning the definitive management of the patient�s urinary retention issues.
MEDICAL DECISION MAKING
Number and Complexity of Problems Addressed: The patient presented with acute urinary retention, blood in urine, and post-cystoscopy complications including a fall. The differential diagnosis covered a range of potential diagnoses including
post-cystoscopy complications, possible urinary tract infection, or urethral injury, which underscores the severity and complexity of the encounter.
Data: Reviewed the lab work which showed a slight drop in hemoglobin but no significant findings otherwise. X-ray results were analyzed and were negative for acute injury. The appropriate tests and treatments were considered and initiated.
Risk: Consideration for potential hospitalization for urinary retention and complications post-procedure was contemplated.
Past History
<Damir Malik, DO - Last Filed: 02/07/25 23:11>
Past History
ED Past Medical History: Cancer (Prostate cancer) and Hypercholesterolemia
ED Past Surgical History: Urological and Other
Social History
Tobacco: Non-smoker
Alcohol: Occasional
Drug: None
Personal: Single
Living: with family
Employment: Other
Family History
Family History: Other
Phy Exam
<Damir Malik, DO - Last Filed: 02/07/25 23:11>
Physical Exam
Physical Exam:
See HPI
Course
<Damir Malik DO - Last Filed: 02/07/25 23:11>
Orders/Labs/Results
Orders:
Orders
02/06/25 11:55
Electrocardiogram (*1) Urgent
Reason for Study: Syncope
EKG- Treatment ONCE
02/06/25 12:06
0.9% Sodium Chloride 1000 ml [Nss] 1,000 ml IV BOLUS
02/06/25 12:07
Complete Blood Count/With Diff Urgent
Comprehensive Metabolic Panel Urgent
02/06/25 13:02
CR Knee - Left 4 Or More View* Urgent
Comment:
Reason For Exam: trauma
02/06/25 13:22
Phenazopyridine HCl [Pyridium] 200 mg PO NOW STA
02/06/25 13:55
Lidocaine 2% [Lidocaine Uro-Jet 2%] 1 syringe .ROUTE .[facility]
02/06/25 14:01
HYDROmorphone [Dilaudid] 0.5 mg IV NOW STA
Ondansetron Injectable [Zofran] 4 mg IV NOW STA
02/06/25 16:36
Urinalysis Reflex To Culture Urgent
Date Specimen was Collected: 02/06/25
Time Specimen was Collected: 16:34
Urine Microscopic Reflex Cult Urgent
Urine Culture Urgent
MICHAEL Source: U
Specimen Description:
Date Specimen was Collected: 02/06/25
Time Specimen was Collected: 16:34
Abnormal Lab Results
02/06/25 02/06/25
12:07 16:36
RBC 3.83 L 10^6/uL
(4.70-6.10)
Hgb 12.3 L g/dL
(13.0-18.0)
Hct 34.2 L %
(39.0-52.0)
MCH 32.1 H pg
(27.0-31.0)
Absolute Lymphs (auto) 0.8 L 10^3/uL
(1.2-3.4)
Neutrophils % 76.6 H %
(42.2-75.2)
Lymphocytes % 13.0 L %
(20.5-51.1)
Chloride 109 H mmol/L
(98-107)
Total Protein 6.0 L g/dl
(6.3-8.2)
Ur Occult Blood Reflex 4+ A
(Negative)
Urine Nitrite (Reflex) Positive A
(Negative)
Leukocyte Esterase Rfl 1+ A
(Negative)
Urine RBC >100 A /HPF
(0-2)
Urine Albumin (Reflex) 3+ A
(Neg - Trace)
02/06/25 12:07
02/06/25 12:07
Vital Signs
Initial and Last Documented VS:
Initial Vital Signs
Temp Pulse Resp BP Pulse Ox
37.1 C 48 16 127/73 100
02/06/25 11:53 02/06/25 11:53 02/06/25 11:53 02/06/25 11:53 02/06/25 11:53
Last Documented Vital Signs
Temp Pulse Resp BP Pulse Ox
37.1 C 74 11 113/57 96
02/06/25 11:53 02/06/25 16:38 02/06/25 16:38 02/06/25 16:38 02/06/25 16:38
<Alondra Castillo DO - Last Filed: 02/06/25 16:30>
Orders/Labs/Results
Orders:
Orders
02/06/25 11:55
Electrocardiogram (*1) Urgent
Reason for Study: Syncope
EKG- Treatment ONCE
02/06/25 12:06
0.9% Sodium Chloride 1000 ml [Nss] 1,000 ml IV BOLUS
02/06/25 12:07
Complete Blood Count/With Diff Urgent
Comprehensive Metabolic Panel Urgent
02/06/25 13:02
CR Knee - Left 4 Or More View* Urgent
Comment:
Reason For Exam: trauma
02/06/25 13:22
Phenazopyridine HCl [Pyridium] 200 mg PO NOW STA
02/06/25 13:55
Lidocaine 2% [Lidocaine Uro-Jet 2%] 1 syringe .ROUTE .[facility]
02/06/25 14:01
HYDROmorphone [Dilaudid] 0.5 mg IV NOW STA
Ondansetron Injectable [Zofran] 4 mg IV NOW STA
02/06/25 16:36
Urinalysis Reflex To Culture Urgent
Date Specimen was Collected: 02/06/25
Time Specimen was Collected: 16:34
Urine Microscopic Reflex Cult Urgent
Urine Culture Urgent
MICHAEL Source: U
Specimen Description:
Date Specimen was Collected: 02/06/25
Time Specimen was Collected: 16:34
Abnormal Lab Results
02/06/25 02/06/25
12:07 16:36
RBC 3.83 L 10^6/uL
(4.70-6.10)
Hgb 12.3 L g/dL
(13.0-18.0)
Hct 34.2 L %
(39.0-52.0)
MCH 32.1 H pg
(27.0-31.0)
Absolute Lymphs (auto) 0.8 L 10^3/uL
(1.2-3.4)
Neutrophils % 76.6 H %
(42.2-75.2)
Lymphocytes % 13.0 L %
(20.5-51.1)
Chloride 109 H mmol/L
(98-107)
Total Protein 6.0 L g/dl
(6.3-8.2)
Ur Occult Blood Reflex 4+ A
(Negative)
Urine Nitrite (Reflex) Positive A
(Negative)
Leukocyte Esterase Rfl 1+ A
(Negative)
Urine RBC >100 A /HPF
(0-2)
Urine Albumin (Reflex) 3+ A
(Neg - Trace)
02/06/25 12:07
02/06/25 12:07
Vital Signs
Initial and Last Documented VS:
Initial Vital Signs
Temp Pulse Resp BP Pulse Ox
37.1 C 48 16 127/73 100
02/06/25 11:53 02/06/25 11:53 02/06/25 11:53 02/06/25 11:53 02/06/25 11:53
Last Documented Vital Signs
Temp Pulse Resp BP Pulse Ox
37.1 C 74 11 113/57 96
02/06/25 11:53 02/06/25 16:38 02/06/25 16:38 02/06/25 16:38 02/06/25 16:38
<Damir Malik DO - Last Filed: 02/07/25 23:11>
*Pulse Oximetry
Patient hypoxic: no (100% room air-normal)
*Sr Community Manager Interpretation
Rate: normal
Interpretation: normal
Heart Rate: 70
Rhythm: sinus
*Critical Care Note
Total Time (30-74mins, 75-104mins- exclusive of procedures): Not Applicable
<Alondra Castillo DO - Last Filed: 02/06/25 16:30>
Update Note
Update Note:
Attending signout note (Alondra Castillo DO)
16:30-patient seen and evaluated. 69-year-old male who had cystoscopy today by Dr. Akins for hematuria. Patient went home, was noted to have some penile burning, stood up and passed out. Subsequently came to the emergency department, found
to have retention of about 900 cc of urine in the bladder. From a syncope standpoint, hemodynamically stable, EKG nonischemic. Suspected vasovagal component. Labs unremarkable. Difficulty passing catheter, so urology called to bedside, and at
time of signout, pending urology evaluation. Dr. Akins to bedside. He was able to pass a straight cath, drain the bladder. He ultimately feels the patient can go home. Feel reasonable, however return precautions explained to patient
including any increased difficulty passing urine. Patient verbalized understanding
ED Attending Note
<Damir Malik DO - Last Filed: 02/07/25 23:11>
-
Portions of this chart may have been created with voice recognition software.� Occasional wrong word or��sound alike� substitutions may have occurred due to the inherent limitations of voice recognition software.
Discharge Plan
Departure
Patient Disposition: Home (Routine Discharge)
Date of Disposition: 02/06/25
Time of Disposition: 16:51
Patient with high blood pressure during this ER visit?: No
Condition: Good
Discharge Problem:
Acute urinary retention, Hematuria
Instructions: Blood in the urine (hematuria) in adults, Syncope (Fainting) (DC), Urinary retention - Discharge instructions
Prescriptions:
No Action
fluoxetine 20 mg Capsule
20 mg PO MO
doxycycline hyclate 100 mg Capsule
100 mg PO TUTH
tadalafil 5 mg Tablet
5 mg PO WEFR
Brilinta 90 mg Tablet
90 mg PO BID Qty: 60 11RF
atorvastatin 80 mg Tablet
80 mg PO QPM Qty: 30 11RF
pantoprazole 40 mg Tablet,Delayed Release (Dr/Ec)
40 mg PO DAILY Qty: 30 11RF
lisinopril 2.5 mg Tablet
2.5 mg PO DAILY Qty: 30 11RF
aspirin 81 mg Tablet,Chewable
81 mg PO DAILY Qty: 30 0RF
metoprolol succinate 25 mg Tablet Extended Release 24 Hr
12.5 mg PO BID Qty: 30 0RF
Referrals:
Sy Wooten DO [Family Provider, [facility]]
Sukhdeep Akins MD [Active, Urology]
Activity Restrictions/Additional Instructions:
You were seen in the emergency department for difficulty urinating and an episode of passing out
You were found to have acute urine retention. Your bladder was drained by the urologist. Please follow-up closely with your urologist. If you have any additional issues with passing your urine or continued dark blood in the urine, return to the
hospital.
Please follow-up closely with your primary care physician.
Return to the emergency department for any worsening of your symptoms, or any development of chest pain, difficulty breathing, abdominal pain with persistent vomiting and inability to tolerate food or liquid by mouth (concern for dehydration),
weakness, headache or confusion, fever greater than 100.4, or any additional symptoms that are concerning to you.
Thank you for choosing [facility].
Interventions
Interventions:
*Risk Screen - Suicide Last Done: 02/06/25 11:57
*General Assessment Last Done: 02/06/25 12:00
*Neglect/Abuse Screening Last Done: 02/06/25 11:57
*ED- Fall Risk Assessment Last Done: 02/06/25 12:00
*Nursing Disposition Last Done: 02/06/25 16:57
ED- Cardiac Assessment Last Done: 02/06/25 12:01
ED- Neurological Assessment Last Done: 02/06/25 11:58
Discharge Date and Time
Discharge Date/Time: 02/06/25 16:57
Print Language: VIETNAMESE
[2025-02-06 11:54] VITALS: BP 127/73
[2025-02-06 11:55] VITALS: BMI 26.9
[2025-02-06 12:00] VITALS: BP 128/67
[2025-02-06 12:23] LABS: % Basophils 0.3 % (0-2); % Eosinophils 2.2 % (0-6); % Immature Granulocytes 0.2 % (0-0.5); % Monocytes 7.7 % (1.7-9.3); % Neutrophils 76.6 % (42.2-75.2); Absolute Eosinophils 0.1 10^3/uL (0-0.7); Absolute Lymphocytes 0.8 10^3/uL (1.2-3.4); Absolute Monocytes 0.5 10^3/uL (0.1-0.6); Absolute Neutrophils 4.9 10^3/uL (1.4-6.5); Hematocrit 34.2 % (39.0-52.0); Hemoglobin 12.3 g/dL (13.0-18.0); Mean Corpuscular Hgb 32.1 pg (27.0-31.0); Mean Corpuscular Volume 89.3 fL (80.0-94.0); Mean Platelet Volume 9.7 fL (7.4-10.4); Nucleated Red Blood Cells % 0 % (-); Platelet Count 224 10^3/uL (130-400); Red Blood Cell Count 3.83 10^6/uL (4.70-6.10); Red Cell Dist. Width 13.2 % (11.5-14.5); White Blood Cell Count 6.4 10^3/uL (4.8-10.8)
[2025-02-06] MEDS: NSS 1000 IV (12:29)
[2025-02-06 12:40] LABS: ALT (SGPT) 37 U/L (0-50); AST (SGOT) 33 U/L (17-59); Albumin 3.9 g/dl (3.5-5.0); Alkaline Phosphatase 91 U/L (38-126); Blood Urea Nitrogen 16 mg/dl (9-20); Calcium 9.2 mg/dl (8.4-10.2); Carbon Dioxide 24 mmol/L (22-30); Chloride 109 mmol/L (98-107); Estimated Creatinine Clearance 108 ml/min; Glucose 99 mg/dl (70-99); Sodium 138 mmol/L (135-145); Total Bilirubin 0.9 mg/dl (0.2-1.3); eGFR > 60.00
[2025-02-06] MEDS: Pyridium 200 MG PO (13:40)
[2025-02-06] MEDS: DILAUDID 0.5 MG IV (14:20)
[2025-02-06] MEDS: ZOFRAN 4 MG IV (14:20)
[2025-02-06 15:45] VITALS: BP 111/53
[2025-02-06 16:00] VITALS: BP 127/64
--- NOTE | 2025-02-06 16:31 | W.PN.UPDATE ---
Update Note
Progress Note Update
Catheterized for > 750 ml urine
Will d/s to home
[2025-02-06 16:38] VITALS: BP 113/57
[2025-02-06 16:56] LABS: Urine Albumin 3+ (Neg - Trace); Urine Bilirubin Negative (Negative); Urine Character Slightly Cloudy (Clear); Urine Color Yellow; Urine Glucose Negative (Negative); Urine Ketone Negative (Negative); Urine Leukocyte 1+ (Negative); Urine Nitrite Positive (Negative); Urine Occult Blood 4+ (Negative); Urine Urobilinogen 1+ (Neg - 1+)
[2025-02-06 17:56] LABS: Urine Red Blood Cell >100 /HPF (0-2); Urine Squamous Cell 0-2 /LPF (Few)
== END 2025-02-06 16:57 | disposition home or self-care (01) ==
LOC: EMR 11:50
PROVIDERS: Emergency Medicine; EMERGENCY PHYSICIAN Student in an Organized Health Care Education/Training Program; FAMILY PHYSICIAN Family Medicine
DX: R31.9 Hematuria, unspecified (principal); R33.9 Retention of urine, unspecified; S80.212A Abrasion, left knee, initial encounter; E78.00 Pure hypercholesterolemia, unspecified; Z95.5 Presence of coronary angioplasty implant and graft
CPT/HCPCS: 99285; 96374; 96375; 96361; 51701; 73564; 80053; 81003; 81015; 85025; 87086; 93005

== ENCOUNTER 2025-02-14 11:27 | Outpatient (RCR) | payer OTHER, SELFPAY | END 2025-02-16 18:39 | disposition home or self-care (01) | LOC: CRHB 11:27 | PROVIDERS: ATTENDING PHYSICIAN Internal Medicine Cardiovascular Disease | DX: I25.10 Atherosclerotic heart disease of native coronary artery without angina pectoris (principal); Z95.5 Presence of coronary angioplasty implant and graft; I25.2 Old myocardial infarction | CPT/HCPCS: G0422; G0423 ==